=== PATIENT | female | born 1960 | race Hispanic/Latino ===

== ENCOUNTER 2018-05-04 11:45 | Day surgery (SDC) | payer BC ==
[2018-05-04] MEDS ORDERED: PHENYLEPHRINE 10% OPTH 5ML ONE (12:01)
[2018-05-04] MEDS ORDERED: LIDOCAINE 2% MPF 5 ML VIAL ONE ×2 (12:01→12:54)
[2018-05-04] MEDS ORDERED: CYCLOPENTOLATE 1% OPTH 2 ML ONE (12:01)
[2018-05-04] MEDS ORDERED: BUPIVACAINE 0.25% PF 10 ML VIAL ONE (12:01)
[2018-05-04] MEDS ORDERED: NA CHLORIDE 0.9% 500 ML ONE (12:01)
[2018-05-04] MEDS ORDERED: TETRACAINE HCL 0.5% 2ML OPTH ONE (12:01)
[2018-05-04] MEDS ORDERED: NS 0.9% VIAL 10 ML ONE (12:11)
[2018-05-04] MEDS ORDERED: DUOVISC 1 KIT OPTH ONE (12:12)
[2018-05-04] MEDS ORDERED: BALANCED SALT IRRIG PLAIN 500 ML BTL IRR ONE (12:12)
[2018-05-04] MEDS ORDERED: MOXIFLOXACIN HCL 10 DROPS/ML **OR USE OPTH ONE (12:12)
[2018-05-04] MEDS ORDERED: CYCLOPENTOLATE 1% OPTH 2 ML OPTH ONE ×2 (12:15→12:20)
[2018-05-04] MEDS ORDERED: PHENYLEPHRINE 10% OPTH 5ML OPTH ONE ×2 (12:15→12:20)
[2018-05-04] MEDS ORDERED: PROPOFOL 200 MG/20 ML VIAL IV ONE (12:54)
[2018-05-04] MEDS ORDERED: EPINEPHRINE/PF 1 MG/ML AMP ONE (13:05)
--- NOTE | 2018-05-04 14:02 | P.BOP ---
Preoperative diagnosis: Posterior polar cataract OS Postoperative diagnosis: Same Primary procedure: Phacoemulsification with IOL OS Estimated blood loss: None Anesthesia: Local (Subtenon's infusion with anesthesia for cataract surgery) Complications: None Implants: [id number] +23..5 Transferred to: Other (Day surgery) Condition: Good
--- NOTE | 2018-05-05 01:18 | OP ---
Date of Procedure: 05/04/2018 Surgeon: Zenobia Solis MD Anesthesiologist: 1. Darshan Felipe CRNA. 2. Yuri Patterson M.D. Preoperative Diagnosis: Nuclear sclerotic cataract, and/or cortical cataract and/or posterior subcap sular cataract, left eye. Operation Performed: Phacoemulsification with intraocular lens implant, left eye. Anesthesia: Per cataract surgery. Complications: None. Description Of Procedure: In day surgery, the patient was prepped with Betadine and draped. A conju nctival incision was made in the inferior nasal quadrant with Franko scissors. A sub-Tenon block c onsisting of a 1:1 mixture of 2% Xylocaine and 0.25% bupivacaine was placed through the conjunctival incision with a blunt cannula. A Honan balloon was placed over the eye and the patient was transferr ed to the operating room. In the operating room the patient was prepped and draped in the usual sterile fashion for ophthalmic surgery. A lid speculum was placed in the left eye. Two paracentesis sites were made superiorly and inferiorly in the limbal cornea. Viscoat was placed in the anterior chamber and a crescent blade wa s used to make a corneal groove and tunnel, and a keratome was used to enter the anterior chamber. P rovisc was placed in the anterior chamber and a 360 degree capsulotomy was performed with a cystitome . The lens was hydrodissected with BSS and rotated freely. The lens was removed with a stop and cho p technique. 12.35 phaco CDE was used to remove the lens. Residual cortex was removed with the irri gation and aspiration. Provisc was placed in the capsular bag. A ZCB00 +23.[address] d in the capsular bag without complications. Irrigation and aspiration were used to remove residual viscoelastic. The paracentesis sites were hydrated with BSS. The wound and paracentesis sites were inspected and found to be watertight. Vigamox 0.07 cc was placed intracamerally at the end of the pr ocedure. The eye was irrigated with balanced salt solution. The eye was patched with a soft cotton patch and Oshea metal shield. The patient was returned to day surgery in good condition. Comments: The lens was hydrodelineated rather than hydrodissected. 1:5000 epinephrine was placed in the anterior chamber prior to Viscoat. Discharge Instructions: Ms. Saucedo is discharged to home in good condition and is to follow up [facility] Dr. Solis in the morning. BHARTI/JEFF Voice ID: [id number] Report ID: [id number]
== END 2018-05-04 14:40 | disposition home or self-care (01) ==
LOC: OR 11:45
PROVIDERS: ATTEND Ophthalmology Retina Specialist
PROC: 08RK3JZ Replacement of Left Lens with Synthetic Substitute, Percutaneous Approach (ICD-10-PCS; principal; 2018-05-04 11:30)
DX: H25.12 Age-related nuclear cataract, left eye (principal); H25.042 Posterior subcapsular polar age-related cataract, left eye; H25.012 Cortical age-related cataract, left eye; I10 Essential (primary) hypertension; E66.9 Obesity, unspecified; Z68.41 Body mass index [BMI] 40.0-44.9, adult
CPT/HCPCS: J0171

== ENCOUNTER 2018-07-20 12:29 | Day surgery (SDC) | payer BC ==
[2018-07-20] MEDS ORDERED: PHENYLEPHRINE 10% OPTH 5ML ONE (12:47)
[2018-07-20] MEDS ORDERED: NA CHLORIDE 0.9% 500 ML ONE (12:47)
[2018-07-20] MEDS ORDERED: CYCLOPENTOLATE 1% OPTH 2 ML ONE (12:48)
[2018-07-20] MEDS ORDERED: CYCLOPENTOLATE 1% OPTH 2 ML OPTH ONE ×2 (13:09→13:22)
[2018-07-20] MEDS ORDERED: PHENYLEPHRINE 10% OPTH 5ML OPTH ONE ×2 (13:09→13:22)
[2018-07-20] MEDS ORDERED: EPINEPHRINE/PF 1 MG/ML AMP ONE (13:22)
[2018-07-20] MEDS ORDERED: NS 0.9% VIAL 10 ML ONE (13:22)
[2018-07-20] MEDS ORDERED: BALANCED SALT IRRIG PLAIN 500 ML BTL IRR ONE (13:22)
[2018-07-20] MEDS ORDERED: MOXIFLOXACIN HCL 10 DROPS/ML **OR USE OPTH ONE (13:23)
[2018-07-20] MEDS ORDERED: DUOVISC 1 KIT OPTH ONE (13:23)
[2018-07-20] MEDS: TETRACAINE HCL 0.5% 2ML OPTH ONE ×2 (13:54→14:34)
[2018-07-20] MEDS: BUPIVACAINE 0.25% PF 10 ML VIAL ONE ×2 (13:54→14:35)
[2018-07-20] MEDS: LIDOCAINE 2% MPF 5 ML VIAL ONE ×2 (13:55→14:35)
[2018-07-20] MEDS ORDERED: PROPOFOL 200 MG/20 ML VIAL IV ONE (14:42)
[2018-07-20] MEDS ORDERED: LIDOCAINE 1% MPF 5 ML VIAL ONE (14:43)
--- NOTE | 2018-07-20 15:34 | P.BOP ---
Preoperative diagnosis: Posterior polar cataract OD Postoperative diagnosis: Same Primary procedure: Phacoemulsification with IOL OD Estimated blood loss: None Anesthesia: Local (Subtenon's infusion with anesthesia for cataract surgery) Complications: None Implants: ZCB00 +24.5 Transferred to: Other (Day surgery) Condition: Good
--- NOTE | 2018-07-21 01:31 | OP ---
Date of Procedure: 07/20/2018 Surgeon: Zenobia Solis MD Anesthesiologist: 1. Darshan Lux CRNA. 2. Jerson Horvath M.D. Preoperative Diagnosis: Posterior polar cataract, right eye. Operation Performed: Phacoemulsification with intraocular lens implant, right eye. Anesthesia: Per cataract surgery. Complications: None. Description Of Procedure: In day surgery, the patient was prepped with Betadine and draped. A conju nctival incision was made in the inferior nasal quadrant with Franko scissors. A sub-Tenon block c onsisting of a 1:1 mixture of 2% Xylocaine and 0.25% bupivacaine was placed through the conjunctival incision with a blunt cannula. A Honan balloon was placed over the eye and the patient was transferr ed to the operating room. In the operating room the patient was prepped and draped in the usual sterile fashion for ophthalmic surgery. A lid speculum was placed in the right eye. Two paracentesis sites were made superiorly an d inferiorly in the limbal cornea. Viscoat was placed in the anterior chamber and a crescent blade w as used to make a corneal groove and tunnel, and a keratome was used to enter the anterior chamber. Provisc was placed in the anterior chamber and a 360 degree capsulotomy was performed with a cystitom e. The lens was hydrodissected with BSS and rotated freely. The lens was removed with a stop and ch op technique. 1.63 phaco CDE was used to remove the lens. Residual cortex was removed with the irri gation and aspiration. Provisc was placed in the capsular bag. A ZCB00 +24.[address] d in the capsular bag without complications. Irrigation and aspiration were used to remove residual viscoelastic. The paracentesis sites were hydrated with BSS. The wound and paracentesis sites were inspected and found to be watertight. Vigamox 0.07 cc was placed intracamerally at the end of the pr ocedure. The eye was irrigated with balanced salt solution. The eye was patched with a soft cotton patch and Oshea metal shield. The patient was returned to day surgery in good condition. Comments: The lens was hydrodelineated rather than hydrodissected. Discharge Instructions: Ms. Saucedo is discharged to home in good condition and is to follow up silvana Solis in the morning. BHARTI/JEFF Voice ID: [id number] Report ID: [id number]
== END 2018-07-20 15:55 | disposition home or self-care (01) ==
LOC: OR 12:29
PROVIDERS: ATTEND Ophthalmology Retina Specialist
PROC: 08RJ3JZ Replacement of Right Lens with Synthetic Substitute, Percutaneous Approach (ICD-10-PCS; principal; 2018-07-20 12:00)
DX: H25.041 Posterior subcapsular polar age-related cataract, right eye (principal); H25.11 Age-related nuclear cataract, right eye; I10 Essential (primary) hypertension; Z90.49 Acquired absence of other specified parts of digestive tract; Z83.518 Family history of other specified eye disorder
CPT/HCPCS: J0171

== ENCOUNTER 2018-11-24 09:47 | Emergency (ER) | payer BC ==
[2018-11-24] MEDS ORDERED: DIPHENHYDRAMINE 50 MG/ML VIAL ONE (11:36)
[2018-11-24] MEDS ORDERED: METOCLOPRAMIDE 10 MG/2mL INJ ONE (11:36)
[2018-11-24] MEDS ORDERED: KETOROLAC 30 MG/ML INJ ONE (11:36)
[2018-11-24] MEDS ORDERED: ONDANSETRON 4 MG/2 ML VIAL ONE (11:53)
[2018-11-24] MEDS ORDERED: NA CHLORIDE 0.9% 1,000 ML ONE (12:01)
[2018-11-24 12:13] LABS: Absolute Lymphocytes (CBC) 4.4 K/uL (0.7-4.9); Absolute Monocytes 0.9 K/uL (0.1-1.3); Absolute Neutrophil 10.6 K/uL (1.8-8.0); Basophils % 1.1 % (0-1.3); Eosinophils % 1.7 % (0-4.4); Hematocrit 42.5 % (36.0-45.0); Lymphocytes % 26.9 % (15.3-44.8); MPV 10.9 fL (7.6-11.3); Monocytes % 5.7 % (3.3-12.3); RBC Red Blood Cell Count 5.07 M/uL (3.86-4.86)
--- NOTE | 2018-11-24 12:24 | RAD REPORT ---
EXAM DESCRIPTION: CT - Head Brain Wo Cont - 11/24/2018 12:15 pm CLINICAL HISTORY: HEADACHE COMPARISON: No comparisons TECHNIQUE: All CT scans are performed using dose optimization technique as appropriate and may inclu de automated exposure control or mA/KV adjustment according to patient size. FINDINGS: No intracranial hemorrhage, hydrocephalus or extra-axial fluid collection.No areas of brai n edema or evidence of midline shift. Multifocal opacification of the ethmoid air cells and left aspect of the sphenoid sinus seen. The shawn varium is intact. IMPRESSION: No acute intracranial abnormality.
[2018-11-24 12:42] LABS: ALT/SGPT 21 U/L (12-78); AST/SGOT 17 U/L (15-37); Albumin 3.6 g/dL (3.4-5.0); Alkaline Phosphatase 107 U/L (45-117); BUN Blood Urea Nitrogen 8 mg/dL (7-18); Bicarbonate 27 mmol/L (21-32); Bilirubin Total 0.4 mg/dL (0.2-1.0); Glucose Level 132 mg/dL (74-106); Potassium 3.3 mmol/L (3.5-5.1); Protein, Total 8.7 g/dL (6.4-8.2); Sodium Level 139 mmol/L (136-145); Troponin (Emerg Dept Use Only) < 0.02 ng/mL (0.0-0.045)
--- NOTE | 2018-11-24 14:49 | ER ---
Nurse's Notes [facility] Name: Eleanor Saucedo Age: 58 yrs Sex: Female : 1960 Arrival Date: 11/24/2018 Time: 09:50 Bed 20 Private MD: Diagnosis: Hypertension, established;Headache Presentation: 11/24 09:55 Presenting complaint: Patient states: Reports headache to front of head for 2 days. aj Patient reports high blood pressure readings at home after skipping 2 days of HTN medications. Took Tylenol at home today at 0600 with little relief. Transition of care: patient was not received from another setting of care. Onset of symptoms was November 22, 2018. Risk Assessment: Do you want to hurt yourself or someone else? Patient reports no desire to harm self or others. Initial Sepsis Screen: Does the patient meet any 2 criteria? No. Patient's initial sepsis screen is negative. Does the patient have a suspected source of infection? No. Patient's initial sepsis screen is negative. Care prior to arrival: None. 09:55 Method Of Arrival: Ambulatory 09:55 Acuity: NANCY 3 Triage Assessment: 09:57 Headache History: The patient has had previous headaches and this one is different than previous episodes. General: Appears in no apparent distress. comfortable, Behavior is calm, cooperative, appropriate for age. Pain: Complains of pain in forehead, right eye and left eye. Neuro: Level of Consciousness is awake, alert, obeys commands, Oriented to person, place, time, situation, Appropriate for age Janitor Caretaker are equal bilaterally Moves all extremities. Full function Gait is steady, Speech is normal, Facial symmetry appears normal, Reports headache. Respiratory: Airway is patent Respiratory effort is even, unlabored, Respiratory pattern is regular, symmetrical. Derm: Skin is intact, is healthy with good turgor, Skin is pink, warm \T\ dry. normal. Historical: - Allergies: 09:57 No Known Allergies; aj - Home Meds: :57 enalapril-hydrochlorothiazide 10-25 mg oral tab 1 tab once daily [Active]; aj - PMHx: 09:57 Hypertension; aj - Immunization history:: Adult Immunizations up to date. - Social history:: Smoking status: Patient/guardian denies using tobacco. - Ebola Screening: : Patient negative for fever greater than or equal to 101.5 degrees Fahrenheit, and additional compatible Ebola Virus Disease symptoms Patient denies exposure to infectious person Patient denies travel to an Ebola-affected area in the 21 days before illness onset No symptoms or risks identified at this time. Screenin:18 Abuse screen: Denies threats or abuse. Denies injuries from another. Nutritional sv screening: No deficits noted. Tuberculosis screening: No symptoms or risk factors identified. Fall Risk None identified. Assessment: 11:19 General: Appears in no apparent distress. uncomfortable, obese, well developed, sv Behavior is calm, cooperative, appropriate for age. Pain: Complains of pain in top of head, forehead, right episcopal and left episcopal Pain currently is 8 out of 10 on a pain scale. Quality of pain is described as throbbing, Pain began 2-3 days ago. Is continuous, Also complains of photophobia. Neuro: Level of Consciousness is awake, alert, obeys commands, Oriented to person, place, time, situation, Moves all extremities. Full function Gait is steady. Respiratory: Respiratory effort is even, unlabored, Respiratory pattern is regular, symmetrical. Derm: Skin is pink, warm \T\ dry. 12:24 Reassessment: Patient appears in no apparent distress at this time. Patient and/or sv family updated on plan of care and expected duration. Pain level reassessed. Patient is alert, oriented x 3, equal unlabored respirations, skin warm/dry/pink. Patient states feeling better. Patient states symptoms have improved. Vital Signs: 09:57 BP 149 / 75; Pulse 93; Resp 18; Temp 97.2; Pulse Ox 99% on R/A; Weight 104.33 kg; aj Height 5 ft. 3 in. (160.02 cm); 11:48 Pulse 155; sv 11:57 BP 160 / 72; Pulse 115; Resp 20; Pulse Ox 99% on R/A; sv 12:00 BP 115 / 94; Pulse 104; Resp 18; Pulse Ox 97% ; sv 12:00 Pain 3/10; sv 12:00 Pain 3/10; sv 12:00 Pain 3/10; sv 13:09 BP 115 / 54; Pulse 81; Resp 16; Pulse Ox 98% ; sv 14:29 BP 113 / 48; Pulse 73; Resp 16; Pulse Ox 99% ; sv 14:59 BP 122 / 54; Pulse 77; Resp 16; Pulse Ox 99% ; sv 09:57 Body Mass Index 40.74 (104.33 kg, 160.02 cm) aj 11:[address] Messina of HR. Came to bedside. Pt placed on teletypesetter monitor. sv ED Course: 09:50 Patient arrived in ED. as 09:57 Triage completed. aj 09:57 Arm band placed on left wrist. Patient placed in waiting room, Patient notified of wait aj time. 11:12 Sulaiman Messina MD is Attending Physician. ps1 11:13 Krystyna Holt RN is Primary Nurse. sv 11:18 ED physician to see patient. sv 11:18 Patient has correct armband on for positive identification. Bed in low position. Call sv light in reach. Adult w/ patient. Pulse ox on. NIBP on. Door closed. Head of bed elevated. 11:25 Inserted saline lock: 20 gauge in left forearm, using aseptic technique. Flushed left sv forearm with 5 ml normal saline. 12:[address] vr 12:16 CT Head Brain wo Cont In Process Unspecified. EDMS 14:59 No provider procedures requiring assistance completed. IV discontinued, intact, sv bleeding controlled, No redness/swelling at site. Pressure dressing applied. Administered Medications: 11:30 Drug: TORadol 30 mg Route: IVP; Infused Over: 3 mins; Site: left forearm; sv 12:00 Follow up: Pain 3/10 Adult; Response: No adverse reaction; Marked relief of symptoms; sv Pain is decreased 11:33 Drug: Reglan 10 mg Route: IVP; Infused Over: 3 mins; Site: left forearm; sv 12:00 Follow up: Pain 3/10 Adult; Response: No adverse reaction; Marked relief of symptoms; sv Pain is decreased 11:36 Drug: Benadryl 50 mg Route: IVP; Infused Over: 3 mins; Site: left forearm; sv 12:00 Follow up: Pain 3/10 Adult; Response: No adverse reaction; Marked relief of symptoms; sv Pain is decreased 11:48 Drug: Zofran 4 mg Route: IVP; Site: left forearm; sv 12:00 Follow up: Response: No adverse reaction; Marked relief of symptoms; Nausea is decreasedsv 11:53 Drug: NS 0.9% 1000 ml Route: IV; Rate: 1000 ml; Site: left forearm; sv 13:00 Follow up: Response: No adverse reaction; IV Status: Completed infusion; IV Intake: sv 1000ml Intake: 13:00 IV: 1000ml; Total: 1000ml. sv Outcome: 14:48 Discharge ordered by . ps1 15:00 Discharged to home ambulatory, with family. sv 15:00 Condition: stable 15:00 Condition: improved 15:00 Discharge instructions given to patient, family, Instructed on discharge instructions, follow up and referral plans. Demonstrated understanding of instructions, follow-up care. 15:01 Patient left the ED. sv Signatures: Dispatcher [employer] Krystyna Bryant RN RN sv Myers, Amanda, RN RN aj Martinez, Amelia as Davis, Victoria vr Singer, Phillip, MD MD ps1 Corrections: (The following items were deleted from the chart) 10:00 09:57 Arm band placed on left wrist. Patient placed in an exam room, melanie navarro
--- NOTE | 2018-11-24 14:49 | EDPHYS ---
Physician Documentation [facility] Name: Eleanor Saucedo Age: 58 yrs Sex: Female : 1960 Arrival Date: 11/24/2018 Time: 09:50 Bed 20 Private MD: ED Physician Sulaiman Messina HPI: 11/24 11:22 This 58 yrs old Female presents to ER via Ambulatory with complaints of ps1 Headache, High Blood Pressure. 11:22 patient has a history of headaches and hypertension. She takes enalapril/hctz and ps1 stopped taking the medication two days ago because of urinary complaints at night. She is scheduled to take the medication q day. She states that she developed a headache after stopping the medication, localized frontally and then radiating towards the back. She has no FND. Pain rated as moderate to severe. No visual changes. . Historical: - Allergies: :57 No Known Allergies; aj - Home Meds: :57 enalapril-hydrochlorothiazide 10-25 mg oral tab 1 tab once daily [Active]; aj - PMHx: :57 Hypertension; aj - Immunization history:: Adult Immunizations up to date. - Social history:: Smoking status: Patient/guardian denies using tobacco. - Ebola Screening: : Patient negative for fever greater than or equal to 101.5 degrees Fahrenheit, and additional compatible Ebola Virus Disease symptoms Patient denies exposure to infectious person Patient denies travel to an Ebola-affected area in the 21 days before illness onset No symptoms or risks identified at this time. ROS: 11:22 Constitutional: Negative for fever, chills, and weight loss, Eyes: Negative for injury, ps1 pain, redness, and discharge, Cardiovascular: Negative for chest pain, palpitations, and edema, Respiratory: Negative for shortness of breath, cough, wheezing, and pleuritic chest pain, Abdomen/GI: Negative for abdominal pain, nausea, vomiting, diarrhea, and constipation, MS/Extremity: Negative for injury and deformity, Skin: Negative for injury, rash, and discoloration. 11:22 Neuro: Positive for headache. Exam: 11:22 Constitutional: This is a well developed, well nourished patient who is awake, alert, ps1 and in no acute distress. Head/Face: Normocephalic, atraumatic. Eyes: Pupils equal round and reactive to light, extra-ocular motions intact. Lids and lashes normal. Conjunctiva and sclera are non-icteric and not injected. Chest/axilla: Normal chest wall appearance and motion. Nontender with no deformity. No lesions are appreciated. Cardiovascular: Regular rate and rhythm. No gallops, murmurs, or rubs. Normal PMI, no JVD. No pulse deficits. Respiratory: Lungs have equal breath sounds bilaterally, clear to auscultation and percussion. No rales, rhonchi or wheezes noted. No increased work of breathing, no retractions or nasal flaring. Abdomen/GI: Soft, non-tender, with normal bowel sounds. No distension or tympany. No guarding or rebound. No evidence of tenderness throughout. Back: No spinal tenderness. No costovertebral tenderness. Full range of motion. Skin: Warm, dry with normal turgor. Normal color with no rashes, no lesions, and no evidence of cellulitis. MS/ Extremity: Pulses equal, no cyanosis. Neurovascular intact. Full, normal range of motion. Neuro: Awake and alert, GCS 15, oriented to person, place, time, and situation. Cranial nerves II-XII grossly intact. Sensory grossly intact. Vital Signs: 09:57 BP 149 / 75; Pulse 93; Resp 18; Temp 97.2; Pulse Ox 99% on R/A; Weight 104.33 kg; aj Height 5 ft. 3 in. (160.02 cm); 11:48 Pulse 155; sv 11:57 BP 160 / 72; Pulse 115; Resp 20; Pulse Ox 99% on R/A; sv 12:00 BP 115 / 94; Pulse 104; Resp 18; Pulse Ox 97% ; sv 12:00 Pain 3/10; sv 12:00 Pain 3/10; sv 12:00 Pain 3/10; sv 13:09 BP 115 / 54; Pulse 81; Resp 16; Pulse Ox 98% ; sv 14:29 BP 113 / 48; Pulse 73; Resp 16; Pulse Ox 99% ; sv 14:59 BP 122 / 54; Pulse 77; Resp 16; Pulse Ox 99% ; sv 09:57 Body Mass Index 40.74 (104.33 kg, 160.02 cm) aj 11:[address] Messina of HR. Came to bedside. Pt placed on gambling monitor. sv MDM: 11:27 Patient medically screened. ps1 14:46 Data reviewed: vital signs, nurses notes. ED course: patient had a paroxysmal reaction ps1 to medications given. Her HR increased for approximately 5 minutes and then improved spontaneously. She is currently asymptomatic. Stable for discharge. . 11/24 12:03 Order name: CBC with Diff; Complete Time: 12:51 ps1 11/24 12:03 Order name: CMP; Complete Time: 12:51 ps1 11/24 12:03 Order name: Troponin (emerg Dept Use Only); Complete Time: 12:51 ps1 11/24 12:03 Order name: CT Head Brain wo Cont; Complete Time: 12:51 ps1 11/24 13:41 Order name: EKG Electrocardiogram; Complete Time: 15:00 EDMS Administered Medications: 11:30 Drug: TORadol 30 mg Route: IVP; Infused Over: 3 mins; Site: left forearm; sv 12:00 Follow up: Pain 3/10 Adult; Response: No adverse reaction; Marked relief of symptoms; sv Pain is decreased 11:33 Drug: Reglan 10 mg Route: IVP; Infused Over: 3 mins; Site: left forearm; sv 12:00 Follow up: Pain 3/10 Adult; Response: No adverse reaction; Marked relief of symptoms; sv Pain is decreased 11:36 Drug: Benadryl 50 mg Route: IVP; Infused Over: 3 mins; Site: left forearm; sv 12:00 Follow up: Pain 3/10 Adult; Response: No adverse reaction; Marked relief of symptoms; sv Pain is decreased 11:48 Drug: Zofran 4 mg Route: IVP; Site: left forearm; sv 12:00 Follow up: Response: No adverse reaction; Marked relief of symptoms; Nausea is decreasedsv 11:53 Drug: NS 0.9% 1000 ml Route: IV; Rate: 1000 ml; Site: left forearm; sv 13:00 Follow up: Response: No adverse reaction; IV Status: Completed infusion; IV Intake: sv 1000ml Disposition: 11/24/18 14:48 Discharged to Home. Impression: Hypertension, established, Headache. - Condition is Stable. - Discharge Instructions: Migraine Headache, Hypertension. - Work release form, Medication Reconciliation Form, Thank You Letter, Antibiotic Education, Prescription Opioid Use form. - Follow up: Private Physician; When: As needed; Reason: Recheck today's complaints, Continuance of care, Re-evaluation by your physician. Follow up: Emergency Department; When: As needed; Reason: Worsening of condition. - Problem is an ongoing problem. - Symptoms have improved. Signatures: Dispatcher [employer] Krystyna Bryant RN RN sv Myers, Amanda, RN RN aj Singer, Phillip, MD MD ps1 Corrections: (The following items were deleted from the chart) 15:01 14:48 11/24/2018 14:48 Discharged to Home. Impression: Hypertension, established; sv Headache. Condition is Stable. Forms are Medication Reconciliation Form, Thank You Letter, Antibiotic Education, Prescription Opioid Use. Follow up: Private Physician; When: As needed; Reason: Recheck today's complaints, Continuance of care, Re-evaluation by your physician. Follow up: Emergency Department; When: As needed; Reason: Worsening of condition. Problem is an ongoing problem. Symptoms have improved. ps1
--- NOTE | 2018-11-24 16:56 | EKG ---
Test Date: 2018-10-24 Test Time: 11:54:25 Structural Iron Worker: MEASUREMENT RESULTS: Intervals: Rate: 132 VT: 148 QRSD: 74 QT: 280 QTc: 414 [place]: P: 55 VT: 148 QRS: 51 T: 42 INTERPRETIVE STATEMENTS: Sinus tachycardiawith frequent premature atrial complexes Abnormal ECG No previous ECG available for comparison Electronically Signed On 11-24-18 16:56:05 TAR LEVELER by Jayy Ojeda
== END 2018-11-24 15:01 | disposition home or self-care (01) ==
LOC: ER 09:47
DX: I10 Essential (primary) hypertension (principal); R51 Headache
CPT/HCPCS: 36415; 70450; 80053; 84484; 85025; 93005; 96361; 96374; 96375; 99284; J2405; J2765; J7030

== ENCOUNTER 2020-09-22 14:33 | Emergency (ER) | payer BC ==
--- NOTE | 2020-09-22 15:33 | RAD REPORT ---
EXAM DESCRIPTION: RAD - Chest Single View - 09/22/2020 3:28 pm CLINICAL HISTORY: CHEST PAIN Chest pain. COMPARISON: No comparisons FINDINGS: Portable technique limits examination quality. The lungs are grossly clear. The heart is normal in size. No displaced fractures. IMPRESSION: No acute intrathoracic process suspected.
[2020-09-22 15:57] LABS: Protime INR 1.15
[2020-09-22 16:04] LABS: Absolute Lymphocytes (CBC) 1.9 K/uL (0.7-4.9); Basophils % 0.7 % (0-1.3); Hematocrit 43.7 % (36.0-45.0); Lymphocytes % 15.1 % (15.3-44.8); MPV 11.6 fL (7.6-11.3); RBC Red Blood Cell Count 5.12 M/uL (3.86-4.86)
[2020-09-22 16:13] LABS: ALT/SGPT 23 U/L (12-78); AST/SGOT 15 U/L (15-37); Albumin 3.8 g/dL (3.4-5.0); Alkaline Phosphatase 90 U/L (45-117); BUN Blood Urea Nitrogen 15 mg/dL (7-18); Bicarbonate 28 mmol/L (21-32); Bilirubin Direct 0.1 mg/dL (0-0.2); Bilirubin Total 0.4 mg/dL (0.2-1.0); Glucose Level 136 mg/dL (74-106); Magnesium 2.3 mg/dL (1.8-2.4); NT PRO-BNP 21 pg/mL (<125); Potassium 3.3 mmol/L (3.5-5.1); Protein, Total 8.8 g/dL (6.4-8.2); Sodium Level 137 mmol/L (136-145); Troponin (Emerg Dept Use Only) < 0.02 ng/mL (0.0-0.045)
--- NOTE | 2020-09-22 17:06 | RAD REPORT ---
EXAM DESCRIPTION: US - Abdomen Exam Limited - 09/22/2020 5:00 pm CLINICAL HISTORY: ABD PAIN COMPARISON: Abdomen Exam Complete dated 09/13/2020 FINDINGS: The gallbladder surgically absent. The common bile duct is normal measuring 5 mm.. The liver demonstrates no findings of intrahepatic biliary dilatation. IMPRESSION: Unremarkable examination status post cholecystectomy.
--- NOTE | 2020-09-22 17:15 | EDPHYS ---
Physician Documentation [facility] Name: Eleanor Saucedo Age: 60 yrs Sex: Female : 1960 Arrival Date: 09/22/2020 Time: 14:33 Bed 14 Private MD: ED Physician Omi Hogue HPI: 09/22 17:52 This 60 yrs old Female presents to ER via Ambulatory with complaints of Chest kb Pain. 17:52 The patient presents with abdominal pain in the epigastric area. Onset: The kb symptoms/episode began/occurred 1 week(s) ago. The symptoms do not radiate. Associated signs and symptoms: none. The symptoms are described as intermittent. Modifying factors: The symptoms are alleviated by nothing, the symptoms are aggravated by nothing. Severity of pain: At its worst the pain was mild in the emergency department the pain is unchanged. The patient has not experienced similar symptoms in the past. The patient has not recently seen a physician. Pt reports epigastric pain that has been intermittent for a week.. Historical: - Allergies: 14:44 Benadryl; ss - PMHx: 14:44 Hypertension; ss - Immunization history:: Adult Immunizations up to date. - Social history:: Smoking status: Patient denies any tobacco usage or history of. ROS: 17:53 Constitutional: Negative for fever, chills, and weight loss, Cardiovascular: Negative kb for chest pain, palpitations, and edema, Respiratory: Negative for shortness of breath, cough, wheezing, and pleuritic chest pain, Back: Negative for injury and pain, MS/Extremity: Negative for injury and deformity, Skin: Negative for injury, rash, and discoloration, Neuro: Negative for headache, weakness, numbness, tingling, and seizure. 17:53 Abdomen/GI: Positive for abdominal pain, Negative for nausea, vomiting, and diarrhea. Exam: 17:53 Constitutional: This is a well developed, well nourished patient who is awake, alert, kb and in no acute distress. Head/Face: Normocephalic, atraumatic. Chest/axilla: Normal chest wall appearance and motion. Nontender with no deformity. No lesions are appreciated. Cardiovascular: Regular rate and rhythm with a normal S1 and S2. No gallops, murmurs, or rubs. Normal PMI, no JVD. No pulse deficits. Respiratory: Lungs have equal breath sounds bilaterally, clear to auscultation and percussion. No rales, rhonchi or wheezes noted. No increased work of breathing, no retractions or nasal flaring. Skin: Warm, dry with normal turgor. Normal color with no rashes, no lesions, and no evidence of cellulitis. MS/ Extremity: Pulses equal, no cyanosis. Neurovascular intact. Full, normal range of motion. Neuro: Awake and alert, GCS 15, oriented to person, place, time, and situation. Cranial nerves II-XII grossly intact. Motor strength 5/5 in all extremities. Sensory grossly intact. Cerebellar exam normal. Normal gait. 17:53 Abdomen/GI: Inspection: abdomen appears normal, Bowel sounds: normal, in all quadrants, Palpation: soft, in all quadrants, mild abdominal tenderness, in the epigastric area. Vital Signs: 14:41 BP 170 / 72; Pulse 108; Resp 16; Temp 98.4(TE); Pulse Ox 100% on R/A; Weight 98.88 kg; ss Height 5 ft. 2 in. (157.48 cm); Pain 0/10; 16:00 BP 139 / 69; Pulse 90; Resp 19; Pulse Ox 100% on R/A; ll1 17:00 BP 126 / 60; Pulse 80; ll1 17:46 BP 127 / 74; Pulse 79; Resp 18; Pulse Ox 100% ; Pain 0/10; ll1 14:41 Body Mass Index 39.87 (98.88 kg, 157.48 cm) ss MDM: 14:48 Patient medically screened. kb 17:51 Data reviewed: vital signs, nurses notes. Data interpreted: Pulse oximetry: on room air kb is 100 %. Interpretation: normal. Counseling: I had a detailed discussion with the patient and/or guardian regarding: the historical points, exam findings, and any diagnostic results supporting the discharge/admit diagnosis, lab results, radiology results, the need for outpatient follow up, a family practitioner, to return to the emergency department if symptoms worsen or persist or if there are any questions or concerns that arise at home. 09/22 14:55 Order name: Basic Metabolic Panel; Complete Time: 16:16 kb 09/22 14:55 Order name: CBC with Diff; Complete Time: 16:16 kb 09/22 14:55 Order name: LFT's; Complete Time: 16:16 kb 09/22 14:55 Order name: Magnesium; Complete Time: 16:16 kb 09/22 14:55 Order name: NT PRO-BNP; Complete Time: 16:16 kb 09/22 14:55 Order name: PT-INR; Complete Time: 16:16 kb 09/22 14:55 Order name: Troponin (emerg Dept Use Only); Complete Time: 16:16 kb 09/22 14:55 Order name: XRAY Chest (1 view); Complete Time: 15:35 kb 09/22 14:55 Order name: EKG; Complete Time: 14:56 kb 09/22 14:55 Order name: Cardiac monitoring; Complete Time: 15:31 kb 09/22 14:55 Order name: EKG - Nurse/Tech; Complete Time: 15:31 kb 09/22 14:55 Order name: IV Saline Lock; Complete Time: 15:32 kb 09/22 16:17 Order name: US Abdomen Limited; Complete Time: 17:08 kb 09/22 14:55 Order name: Labs collected and sent; Complete Time: 15:31 kb 09/22 14:55 Order name: O2 Per Protocol; Complete Time: 15:31 kb 09/22 14:55 Order name: O2 Sat Monitoring; Complete Time: 15:31 kb Administered Medications: 17:31 Drug: GI Cocktail without - (Maalox Suspension 30 ml, Lidocaine Liquid 2 % 15 ll1 ml) Route: PO; 17:46 Follow up: Response: No adverse reaction; RASS: Alert and Calm (0) ll1 Disposition: 09/23 08:25 Co-signature as Attending Physician, Omi Hogue MD I agree with the assessment and hailee plan of care. Disposition: 09/22/20 17:14 Discharged to Home. Impression: Epigastric pain. - Condition is Stable. - Discharge Instructions: Abdominal Pain, Adult, [id number], Nonspecific Chest Pain, [id number]. - Medication Reconciliation Form, Thank You Letter, Antibiotic Education, Prescription Opioid Use, Work release form form. - Follow up: Emergency Department; When: As needed; Reason: Worsening of condition. Follow up: Private Physician; When: 2 - 3 days; Reason: Recheck today's complaints, Continuance of care, Re-evaluation by your physician. Signatures: Dispatcher [employer] EDYisel Kolb, SENIOR IT ARCHITECT-C SENIOR IT ARCHITECT-Omi Munson MD MD cha Smirch, Shelby, RN RN ss Myrna Bryant RN RN ll1 Corrections: (The following items were deleted from the chart) 09/22 17:47 17:14 09/22/2020 17:14 Discharged to Home. Impression: Epigastric pain. Condition is ll1 Stable. Discharge Instructions: Abdominal Pain, Adult, [id number], Nonspecific Chest Pain, [id number]-[id number]. Forms are Medication Reconciliation Form, Thank You Letter, Antibiotic Education, Prescription Opioid Use. Follow up: Emergency Department; When: As needed; Reason: Worsening of condition. Follow up: Private Physician; When: 2 - 3 days; Reason: Recheck today's complaints, Continuance of care, Re-evaluation by your physician. kb
--- NOTE | 2020-09-22 17:15 | ER ---
Nurse's Notes [facility] Name: Eleanor Saucedo Age: 60 yrs Sex: Female : 1960 Arrival Date: 09/22/2020 Time: 14:33 Bed 14 Private MD: Diagnosis: Epigastric pain Presentation: 09/22 14:41 Chief complaint: Patient states: intermittent chest pain that began 3-4 days ago. ss Coronavirus screen: Client denies travel out of the [place] in the last 14 days. Ebola Screen: Patient denies exposure to infectious person. Patient denies travel to an Ebola-affected area in the 21 days before illness onset. Initial Sepsis Screen: Does the patient meet any 2 criteria? No. Patient's initial sepsis screen is negative. Does the patient have a suspected source of infection? No. Patient's initial sepsis screen is negative. Risk Assessment: Do you want to hurt yourself or someone else? Patient reports no desire to harm self or others. Onset of symptoms was September 2020. 14:41 Method Of Arrival: Ambulatory ss 14:41 Acuity: NANCY 3 ss Historical: - Allergies: 14:44 Benadryl; ss - PMHx: 14:44 Hypertension; ss - Immunization history:: Adult Immunizations up to date. - Social history:: Smoking status: Patient denies any tobacco usage or history of. Screenin:43 Abuse screen: Denies threats or abuse. Nutritional screening: No deficits noted. ll1 Tuberculosis screening: No symptoms or risk factors identified. Fall Risk IV access (20 points). Total Layton Fall Scale indicates No Risk (0-24 pts). Assessment: 15:42 General: Appears in no apparent distress. Behavior is calm, cooperative, appropriate ll1 for age. Pain: Complains of pain in chest Pain does not radiate. Quality of pain is described as pressure, Pain began 3 to 4 days ago Is intermittent. Neuro: No deficits noted. Cardiovascular: Reports chest pain, Heart tones S1 S2 Capillary refill < 3 seconds Clubbing of nail beds is absent JVD is absent Patient's skin is warm and dry. Chest pain is described as vague, mild, quality is pressure, is located in anterior chest wall began 3 to 4 days ago episodes are intermittent. Respiratory: No deficits noted. GI: No deficits noted. Vital Signs: 14:41 BP 170 / 72; Pulse 108; Resp 16; Temp 98.4(TE); Pulse Ox 100% on R/A; Weight 98.88 kg; ss Height 5 ft. 2 in. (157.48 cm); Pain 0/10; 16:00 BP 139 / 69; Pulse 90; Resp 19; Pulse Ox 100% on R/A; ll1 17:00 BP 126 / 60; Pulse 80; ll1 17:46 BP 127 / 74; Pulse 79; Resp 18; Pulse Ox 100% ; Pain 0/10; ll1 14:41 Body Mass Index 39.87 (98.88 kg, 157.48 cm) ss ED Course: 14:33 Patient arrived in ED. ds1 14:43 Triage completed. ss 14:44 Arm band placed on left wrist. ss 14:48 Yisel Alonso FNP-C is PHCP. kb 14:48 Omi Hogue MD is Attending Physician. kb 15:14 Myrna Bryant, DOUG is Primary Nurse. ll1 15:28 XRAY Chest (1 view) In Process Unspecified. EDMS 15:38 Inserted saline lock: 20 gauge in left antecubital area, using aseptic technique. Blood dh4 collected. Missed attempt(s): 20 gauge in left forearm. 15:43 Patient has correct armband on for positive identification. Bed in low position. Call ll1 light in reach. Side rails up X 1. panel monitor on. Pulse ox on. NIBP on. 15:43 Patient maintains SpO2 saturation greater than 95% on room air. ll1 17:00 US Abdomen Limited In Process Unspecified. EDMS 17:47 IV discontinued, intact, bleeding controlled, No redness/swelling at site. Pressure ll1 dressing applied. 17:47 No provider procedures requiring assistance completed. ll1 Administered Medications: 17:31 Drug: GI Cocktail without - (Maalox Suspension 30 ml, Lidocaine Liquid 2 % 15 ll1 ml) Route: PO; 17:46 Follow up: Response: No adverse reaction; RASS: Alert and Calm (0) ll1 Outcome: 17:14 Discharge ordered by . kb 17:47 Discharged to home ambulatory. ll1 17:47 Condition: stable 17:47 Discharge instructions given to patient, family, Instructed on discharge instructions, follow up and referral plans. Demonstrated understanding of instructions, follow-up care. 17:47 Patient left the ED. ll1 Signatures: Dispatcher [employer] EDYisel Kolb, COOPER-C GROUP DYNAMICS INSTRUCTOR-Anny Durand ds1 Kelly Rodriguez RN RN Charbel Dumont 4 Myrna Bryant RN RN ll1
[2020-09-22] MEDS ORDERED: LIDOCAINE VISCOUS 2% SOLN 15 ML UDC ONE (17:43)
[2020-09-22] MEDS ORDERED: MAGNES/ALUMIN/SIMET 30ML UCUP ONE (17:43)
[2020-09-27 19:30] VITALS: TEMP 98.4; O2SAT 100
[2020-09-27 19:34] VITALS: BP 127/74
== END 2020-09-22 17:47 | disposition home or self-care (01) ==
LOC: ER 14:33
DX: R10.13 Epigastric pain (principal); I10 Essential (primary) hypertension; Z88.8 Allergy status to other drugs, medicaments and biological substances
CPT/HCPCS: 36415; 71045; 76705; 80048; 80076; 83735; 83880; 84484; 85025; 85610; 93005; 99285

== ENCOUNTER 2021-02-13 22:24 | Observation (INO) | payer BC, OTHER ==
[2021-02-13] MEDS ORDERED: ASPIRIN 81 MG CHEWABLE TABLET ONE (23:29)
[2021-02-13 23:35] LABS: Absolute Lymphocytes (CBC) 2.2 K/uL (0.7-4.9); Basophils % 0.9 % (0-1.3); Hematocrit 42.3 % (36.0-45.0); Lymphocytes % 20.6 % (15.3-44.8); MPV 11.8 fL (7.6-11.3)
[2021-02-13 23:59] LABS: BUN Blood Urea Nitrogen 13 mg/dL (7-18); Bicarbonate 29 mmol/L (21-32); Glucose Level 143 mg/dL (74-106); NT PRO-BNP 41 pg/mL (<125); Potassium 3.1 mmol/L (3.5-5.1); Sodium Level 138 mmol/L (136-145); Troponin (Emerg Dept Use Only) < 0.02 ng/mL (0.0-0.045)
--- NOTE | 2021-02-14 00:25 | ER ---
Nurse's Notes [facility] Name: Eleanor Saucedo Age: 60 yrs Sex: Female : 1960 Arrival Date: 02/13/2021 Time: 22:29 Bed 2 Private MD: Diagnosis: Chest pain, unspecified Presentation: 02/13 22:37 Chief complaint: Patient's son or daughter states: midsternal chest pain radiating to iw left shoulder/back, stated around 830 pm, constant , had a previous episode a couple weeks ago and was supposed to have a stress test but was told if the pain got worse to come to the ER, was seen by Dr. Covington. Coronavirus screen: At this time, the client does not indicate any symptoms associated with coronavirus-19. Ebola Screen: Patient negative for fever greater than or equal to 101.5 degrees Fahrenheit, and additional compatible Ebola Virus Disease symptoms Patient denies exposure to infectious person. Patient denies travel to an Ebola-affected area in the 21 days before illness onset. No symptoms or risks identified at this time. Initial Sepsis Screen: Does the patient meet any 2 criteria? No. Patient's initial sepsis screen is negative. Does the patient have a suspected source of infection? No. Patient's initial sepsis screen is negative. Risk Assessment: Do you want to hurt yourself or someone else? Patient reports no desire to harm self or others. Onset of symptoms was February 13, 2021. 22:37 Method Of Arrival: Ambulatory iw 22:37 Acuity: NANCY 2 iw Historical: - Allergies: 22:42 Benadryl; iw - Home Meds: 22:42 amlodipine 5 mg tab 1 tab once daily [Active]; pantoprazole 40 mg oral TbEC 1 tab once iw daily [Active]; enalapril-hydrochlorothiazide 10-25 mg Oral tab 1 tab once daily [Active]; buspirone 10 mg Oral tab 1 tab 2 times per day [Active]; metoprolol tartrate 25 mg Oral tab 1 tab once daily [Active]; aspirin 81 mg Oral TbEC 1 tab once daily [Active]; - PMHx: 22:42 Hypertension; iw - PSHx: 22:42 Cholecystectomy; eye; Tubal ligation; iw - Immunization history:: Adult Immunizations Client reports receiving the 2nd dose of the Covid vaccine. - Social history:: Smoking status: Patient denies any tobacco usage or history of. - Family history:: not pertinent. - Hospitalizations: : No recent hospitalization is reported. Screenin:51 Abuse screen: Denies threats or abuse. Nutritional screening: No deficits noted. ea Tuberculosis screening: No symptoms or risk factors identified. Fall Risk None identified. Assessment: 23:15 General: Appears in no apparent distress. Behavior is calm, cooperative, appropriate ea for age. Pain: Complains of pain in chest Pain does not radiate. Neuro: Level of Consciousness is awake, alert, obeys commands, Oriented to person, place, time. Cardiovascular: Patient's skin is warm and dry. Respiratory: Airway is patent Respiratory effort is even, unlabored, Respiratory pattern is regular, symmetrical. Derm: Skin is pink, warm \T\ dry. 02/14 00:35 Reassessment: Patient and/or family updated on plan of care and expected duration. Pain ea level reassessed. Patient is alert, oriented x 3, equal unlabored respirations, skin warm/dry/pink. 02:42 Reassessment: Patient and/or family updated on plan of care and expected duration. Pain ea level reassessed. Patient is alert, oriented x 3, equal unlabored respirations, skin warm/dry/pink. Report called to receiving nurse on fourth floor. Vital Signs: 02/13 22:37 BP 137 / 79; Pulse 91; Resp 16; Pulse Ox 100% on R/A; Weight 94.8 kg; Height 5 ft. 1 iw in. (154.94 cm); 02/14 00:35 BP 136 / 62; Pulse 85; Resp 18; Pulse Ox 99% on R/A; ea 02:42 BP 111 / 60; Pulse 78; Resp 18; Temp 98; Pulse Ox 99% ; ea 02/13 22:37 Body Mass Index 39.49 (94.80 kg, 154.94 cm) iw ED Course: 02/13 22:29 Patient arrived in ED. ag3 22:40 Triage completed. iw 22:42 Arm band placed on. iw 22:44 Aamir Collins MD is Attending Physician. rn 22:47 Regulo Schmitt RN is Primary Nurse. rv 22:51 Patient has correct armband on for positive identification. Bed in low position. ea window tinter on. Pulse ox on. NIBP on. 22:51 Patient maintains SpO2 saturation greater than 95% on room air. ea 23:10 Inserted saline lock: 20 gauge in left forearm, using aseptic technique. Blood oe collected. 23:44 XRAY Chest (1 view) In Process Unspecified. EDMS 02/14 00:18 No provider procedures requiring assistance completed. Patient admitted, IV remains in ea place. 00:24 Sebastien Collins MD is Hospitalizing Provider. rn Administered Medications: 02/13 23:13 Drug: Aspirin Chewable Tablet 324 mg Route: PO; ea 02/14 01:28 Follow up: Response: No adverse reaction ea 00:29 Drug: Nitroglycerin 0.4 mg Route: Sublingual; ea : Follow up: Response: No adverse reaction ea 01:21 Drug: Potassium Effervescent Tablet 50 mEq Route: PO; ea : Follow up: Response: No adverse reaction ea Outcome: 00:24 Decision to Hospitalize by Provider. rn 01:35 Instructed on the need for admit, Demonstrated understanding of instructions. ea 02:52 Patient left the ED. rv 02:52 Admitted to Med/surg accompanied by tech, room 423, with chart, Report called to ea Receiving nurse 02:52 Condition: stable Signatures: Dispatcher [employer] EDMS Laney Leung, RN Aamir Patel MD MD rn Espinosa, Orlando oe Antunez, Elena, RN RN ea Vicente, Ronaldo, RN RN rv Gomez, Alice ag3
--- NOTE | 2021-02-14 00:25 | EDPHYS ---
Physician Documentation [facility] Name: Eleanor Saucedo Age: 60 yrs Sex: Female : 1960 Arrival Date: 02/13/2021 Time: 22:29 Bed 2 Private MD: ED Physician Aamir Collins HPI: 02/14 00:18 This 60 yrs old Female presents to ER via Ambulatory with complaints of Chest rn Pain. 00:18 The patient or guardian reports chest pain that is located primarily in the substernal rn area. Onset: 2 week(s) ago. The pain does not radiate. Associated signs and symptoms: Pertinent positives: lightheadedness, palpitations, Pertinent negatives: cough, shortness of breath, syncope, vomiting. The chest pain is described as aching, a pressure. Duration: The patient or guardian reports multiple episodes, that are intermittent. Modifying factors: The symptoms are alleviated by nothing. the symptoms are aggravated by nothing. Severity of pain: At its worst the pain was mild in the emergency department the pain is unchanged. The patient has experienced similar episodes in the past. The patient has been recently seen by a physician:. Reports 2 weeks of intermittent chest pain, palpitations, lightheaded, seen by Dr. Covington, who recommended stress test, has not had it done yet. Also takes medication for anxiety, feels like this is different. No fever/cough/trauma.. Historical: - Allergies: 02/13 22:42 Benadryl; iw - Home Meds: 22:42 amlodipine 5 mg tab 1 tab once daily [Active]; pantoprazole 40 mg oral TbEC 1 tab once iw daily [Active]; enalapril-hydrochlorothiazide 10-25 mg Oral tab 1 tab once daily [Active]; buspirone 10 mg Oral tab 1 tab 2 times per day [Active]; metoprolol tartrate 25 mg Oral tab 1 tab once daily [Active]; aspirin 81 mg Oral TbEC 1 tab once daily [Active]; - PMHx: 22:42 Hypertension; iw - PSHx: 22:42 Cholecystectomy; eye; Tubal ligation; iw - Immunization history:: Adult Immunizations Client reports receiving the 2nd dose of the Covid vaccine. - Social history:: Smoking status: Patient denies any tobacco usage or history of. - Family history:: not pertinent. - Hospitalizations: : No recent hospitalization is reported. ROS: 02/14 00:18 Constitutional: Negative for fever, chills, and weight loss, Eyes: Negative for injury, rn pain, redness, and discharge, Neck: Negative for injury, pain, and swelling, Cardiovascular: Negative for edema, + chest pain and palpitations Respiratory: Negative for shortness of breath, cough, wheezing, and pleuritic chest pain, Abdomen/GI: Negative for abdominal pain, nausea, vomiting, diarrhea, and constipation, Back: Negative for injury and pain, MS/Extremity: Negative for injury and deformity, Skin: Negative for injury, rash, and discoloration, Neuro: Negative for headache, weakness, numbness, tingling, and seizure. Exam: 00:18 Constitutional: This is a well developed, well nourished patient who is awake, alert, rn and in no acute distress. Head/Face: Normocephalic, atraumatic. ENT: MMM Cardiovascular: Regular rate and rhythm. No pulse deficits. Respiratory: No increased work of breathing, no retractions or nasal flaring. Abdomen/GI: soft, non-tender Skin: Warm, dry with normal turgor. Normal color with no rashes, no lesions, and no evidence of cellulitis. MS/ Extremity: Pulses equal, no cyanosis. Neurovascular intact. Full, normal range of motion. Equal circumference. Neuro: Awake and alert, GCS 15, oriented to person, place, time, and situation. Cranial nerves II-XII grossly intact. Motor strength 5/5 in all extremities. Sensory grossly intact 00:18 ECG was reviewed by the Attending Physician. rn Vital Signs: 02/13 22:37 BP 137 / 79; Pulse 91; Resp 16; Pulse Ox 100% on R/A; Weight 94.8 kg; Height 5 ft. 1 iw in. (154.94 cm); 02/14 00:35 BP 136 / 62; Pulse 85; Resp 18; Pulse Ox 99% on R/A; ea 02:42 BP 111 / 60; Pulse 78; Resp 18; Temp 98; Pulse Ox 99% ; ea 02/13 22:37 Body Mass Index 39.49 (94.80 kg, 154.94 cm) iw MDM: 02/13 22:44 Patient medically screened. rn 02/14 00:18 Differential diagnosis: acute myocardial infarction, acute pericarditis, anxiety, rn coronary artery disease esophagitis, gastritis. Data reviewed: vital signs, nurses notes, lab test result(s), EKG, radiologic studies, plain films, and as a result, I will admit patient. Counseling: I had a detailed discussion with the patient and/or guardian regarding: the historical points, exam findings, and any diagnostic results supporting the discharge/admit diagnosis, lab results, radiology results, the need for further work-up and treatment in the hospital. Admission orders: after a detailed discussion of the patient's condition and case, the admit orders are written by me. ED course: Pt still having pain, neg trop, no ischemia on ecg, will admit for stress that she hasn't had.. 00:53 ED course: chest pain resolved after nitro. rn 02/13 22:45 Order name: Basic Metabolic Panel; Complete Time: 00:02 rn 02/13 22:45 Order name: CBC with Diff; Complete Time: 00:02 rn 02/13 22:45 Order name: NT PRO-BNP; Complete Time: 00:02 rn 02/13 22:45 Order name: Troponin (emerg Dept Use Only); Complete Time: 00:02 rn 02/14 00:17 Order name: COVID-19 : Document "Date of Symptom Onset" if Symptomatic. ea 02/14 02:09 Order name: SARS-COV-2 RT PCR EDID 02/13 22:45 Order name: XRAY Chest (1 view) rn 02/13 22:45 Order name: EKG; Complete Time: 22:46 rn 02/13 22:45 Order name: Cardiac monitoring; Complete Time: 22:52 rn 02/13 22:45 Order name: EKG - Nurse/Tech; Complete Time: 22:52 rn 02/13 22:45 Order name: IV Saline Lock; Complete Time: 23:11 rn 02/13 22:45 Order name: Labs collected and sent; Complete Time: 23:11 rn 02/13 22:45 Order name: O2 Per Protocol; Complete Time: 22:53 rn 02/13 22:45 Order name: O2 Sat Monitoring; Complete Time: 22:53 rn EC:18 Rate is 104 beats/min. Rhythm is regular. QRS [place] is Normal. VT interval is normal. rn QRS interval is normal. QT interval is normal. No Q waves. T waves are Normal. No ST changes noted. Clinical impression: Sinus tachycardia. Interpreted by me. Reviewed by me. Administered Medications: 02/13 23:13 Drug: Aspirin Chewable Tablet 324 mg Route: PO; ea 02/14 01:28 Follow up: Response: No adverse reaction ea 00:29 Drug: Nitroglycerin 0.4 mg Route: Sublingual; ea Follow up: Response: No adverse reaction ea : Drug: Potassium Effervescent Tablet 50 mEq Route: PO; ea Follow up: Response: No adverse reaction ea Disposition: 02/14/21 00:24 Hospitalization ordered by Sebastien Collins for Observation. Preliminary diagnosis is Chest pain, unspecified. - Bed requested for Telemetry/MedSurg (observation). - Status is Observation. rv - Condition is Stable. - Problem is an ongoing problem. - Symptoms are unchanged. Signatures: Dispatcher [employer] EDIliana Collins RN RN dw Williams, Irene, RN RN iw Nieto, Roman, MD MD rn Attema, Lee, PLANE TENDER-C PLANE TENDER-Cla1 Lilibeth Goss RN RN ea Vicente, Ronaldo, RN RN rv Corrections: (The following items were deleted from the chart) 02: 00:24 Hospitalization Ordered by Sebastien Collins MD for Observation. Preliminary dw diagnosis is Chest pain, unspecified. Bed requested for Telemetry/MedSurg (observation). Status is Observation. Condition is Stable. Problem is an ongoing problem. Symptoms are unchanged. rn 02:52 02:23 02/14/2021 00:24 Hospitalization Ordered by Sebastien Collins MD for Observation. rv Preliminary diagnosis is Chest pain, unspecified. Bed requested for Telemetry/MedSurg (observation). Status is Observation. Condition is Stable. Problem is an ongoing problem. Symptoms are unchanged. dw
--- NOTE | 2021-02-14 00:42 | P.HP ---
Certification for Inpatient Patient admitted to: Observation With expected LOS: <2 Midnights Patient will require the following post-hospital care: None Practitioner: I am a practitioner with admitting privileges, knowledge of patient current condition, hospital course, and medical plan of care. Services: Services provided to patient in accordance with Admission requirements found in Title 42 Section 412.3 of the Code of Federal Regulations <David Card - Last Filed: 02/14/21 00:39> Patient History Date of Service: 02/14/21 Reason for admission: Chest pain History of Present Illness: 60-year-old female with history of hypertension, anxiety, GERD presents emergency room for chest pain, palpitations. Patient reports that she is supposed to have a stress test on outpatient basis with cardiology but has not made her appointment at, patient reports that she has been having a dull aching chest pain radiating to her left shoulder/neck tonight. Patient was evaluated in the emergency department, troponin negative, EKG without acute changes, chest x-ray unremarkable. ED provider wishes to admit patient for chest pain rule out. 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, lives with her - Family History Mother -: Heart disease - Social History Smoking Status: Never smoker Alcohol use: No CD- Drugs: No Caffeine use: Yes Place of Residence: Home <David Card - Last Filed: 02/14/21 00:39> Date of Service: 02/14/21 <Sebastien Collins - Last Filed: 02/14/21 21:35> Allergies diphenhydramine [From Benadryl] Allergy (Verified 02/14/21 03:43) Hives/Rash Home Medications: Amlodipine [Norvasc*] 5 mg PO DAILY 02/14/21 Aspirin [Aspirin EC 81 MG] 81 mg PO DAILY 02/14/21 Buspirone HCl [Buspar] 10 mg PO BID 02/14/21 Enalapril/Hydrochlorothiazide [Enalapril-Hctz 10-25 mg Tablet] 1 tab PO DAILY 02/14/21 Metoprolol Succinate 25 mg PO DAILY 02/14/21 Pantoprazole [Protonix Tab*] 40 mg PO DAILY 02/14/21 Review of Systems 10-point ROS is otherwise unremarkable Cardiovascular: Chest Pain, As per HPI <David Card - Last Filed: 02/14/21 00:39> Physical Examination - Physical Exam General: Alert, In no apparent distress, Oriented x3 HEENT: Atraumatic, PERRLA, Mucous membr. moist/pink Neck: Supple, 2+ carotid pulse no bruit Respiratory: Clear to auscultation bilaterally, Normal air movement Cardiovascular: Regular rate/rhythm, Normal S1 S2 Gastrointestinal: Normal bowel sounds, No tenderness Musculoskeletal: No tenderness Integumentary: No rashes Neurological: Normal speech, Normal strength at 5/5 x4 extr, Normal tone, Normal affect - Studies Laboratory Data (last 24 hrs) 02/13/21 23:03: WBC 10.90, Hgb 14.0, Hct 42.3, Plt Count 277 02/13/21 23:03: Sodium 138, Potassium 3.1 L, BUN 13, Creatinine 0.58, Glucose 143 H <David Card - Last Filed: 02/14/21 00:39> - Studies Laboratory Data (last 24 hrs) 02/13/21 23:03: WBC 10.90, Hgb 14.0, Hct 42.3, Plt Count 277 02/13/21 23:03: Sodium 138, Potassium 3.1 L, BUN 13, Creatinine 0.58, Glucose 143 H <Sebastien Collins - Last Filed: 02/14/21 21:35> Assessment and Plan - Plan Assessment Chest pain rule out ACS Hypertension GERD Plan Chest pain rule out ACS: Monitor on telemetry, trend troponins, continue with aspirin, statin, beta-cong therapy. Cardiology consult in place. NPO after midnight in case of stress test/intervention. DVT prophylaxis Lovenox 40 mg subcutaneous once daily. Hypertension: Continue with metoprolol, other home medications. Adjust as necessary. GERD: Continue home medications. Discharge Plan: Home Plan to discharge in: 24 Hours - Advance Directives Does patient have a Living Will: No Does patient have a Durable POA for Healthcare: No - Code Status/Comfort Care Code Status Assessed: Yes (Full code) Critical Care: No Time Spent Managing Pts Care (In Minutes): 55 <David Card - Last Filed: 02/14/21 00:39> - Plan Plan of care reviewed as noted above by David Card trend troponin. cardiology consulted possible GERD/ulcer <Sebastien Collins - Last Filed: 02/14/21 21:35>
[2021-02-14] MEDS ORDERED: NITROGLYCERIN 0.4 MG/TAB SL ONE (00:44)
[2021-02-14] MEDS ORDERED: POTASSIUM 25 MEQ EFFERV TAB ONE (01:33)
[2021-02-14 03:20] VITALS: BMI 37.4
[2021-02-14] MEDS ORDERED: ONDANSETRON 4 MG/2 ML VIAL IV PRN (03:22)
[2021-02-14 04:32] VITALS: O2SAT 97
[2021-02-14 05:00] LABS: Absolute Lymphocytes (CBC) 1.5 K/uL (0.7-4.9); Basophils % 0.6 % (0-1.3); Hematocrit 36.6 % (36.0-45.0); Lymphocytes % 17.5 % (15.3-44.8); MPV 11.2 fL (7.6-11.3); RBC Red Blood Cell Count 4.33 M/uL (3.86-4.86)
--- NOTE | 2021-02-14 05:10 | RAD REPORT ---
EXAM DESCRIPTION: Misty Single View02/13/2021 11:44 pm CLINICAL HISTORY: Chest pain COMPARISON: none FINDINGS: The lungs appear clear of acute infiltrate. The heart is normal size IMPRESSION: No acute abnormalities displayed
[2021-02-14 05:18] LABS: ALT/SGPT 23 U/L (12-78); AST/SGOT 13 U/L (15-37); Albumin 3.5 g/dL (3.4-5.0); Alkaline Phosphatase 71 U/L (45-117); BUN Blood Urea Nitrogen 9 mg/dL (7-18); Bicarbonate 29 mmol/L (21-32); Bilirubin Total 0.5 mg/dL (0.2-1.0); Glucose Level 109 mg/dL (74-106); HDL Cholesterol 58 mg/dL (40-60); LDL Cholesterol, Calculated 84 (<130); Magnesium 2.2 mg/dL (1.8-2.4); Potassium 3.6 mmol/L (3.5-5.1); Protein, Total 7.7 g/dL (6.4-8.2); Sodium Level 142 mmol/L (136-145); Thyroid Stimulating Hormone 0.977 uIU/mL (0.360-3.740); Troponin I < 0.02 ng/mL (0.0-0.045)
[2021-02-14] MEDS ORDERED: POTASSIUM CL SA 10 MEQ TAB PO ONE ×2 (05:45→06:08)
[2021-02-14 05:47] LABS: Urine Appearance CLEAR (Clear); Urine Bilirubin NEGATIVE (Negataive); Urine Blood NEGATIVE (Negative); Urine Color YELLOW (Yellow); Urine Glucose NEGATIVE (Negative); Urine Microscopic Reflex NO UMIC; Urine Protein NEGATIVE (Negative); Urine Specific Gravity <=1.005 (1.005-1.030)
[2021-02-14] MEDS ORDERED: METOPROLOL XL 25 MG TAB PO SCH (06:00)
[2021-02-14] MEDS ORDERED: PANTOPRAZOLE 40MG TABLET PO SCH (07:30)
--- NOTE | 2021-02-14 07:35 | EKG ---
Test Date: 2021-02-13 Test Time: 22:48:46 Welding Process Specialist: SHERITA MEASUREMENT RESULTS: Intervals: Rate: 104 [place]: 170 QRSD: 74 QT: 312 QTc: 410 [place]: P: 38 OK: 170 QRS: 37 T: 44 INTERPRETIVE STATEMENTS: Sinus tachycardia Nonspecific ST and T wave abnormality Abnormal ECG Compared to ECG 09/22/2020 15:52:04 Sinus rhythm no longer present ST (T wave) deviation still present Electronically Signed On 02-14-21 07:34:57 CDT by Landon Covington
[2021-02-14] MEDS: ENALAPRIL 10 MG TAB PO SCH ×2 (08:07→08:11)
[2021-02-14] MEDS ORDERED: hydroCHLOROthiazide 25 MG TAB PO SCH (09:00)
[2021-02-14] MEDS ORDERED: ASPIRIN EC 81 MG TAB PO SCH (09:00)
[2021-02-14] MEDS ORDERED: AMLODIPINE 5 MG TAB PO SCH (09:00)
[2021-02-14] MEDS ORDERED: ENOXAPARIN 40 MG/0.4 ML SQ SCH (09:00)
[2021-02-14] MEDS ORDERED: BUSPIRONE HCL 5 MG TABLET PO SCH (09:00)
[2021-02-14 12:42] VITALS: BP 115/57; TEMP 97.8
[2021-02-14] MEDS ORDERED: ATORVASTATIN 40 MG TAB PO SCH (21:00)
--- NOTE | 2021-02-14 21:39 | P.DS ---
Admission Date: 02/14/21 Discharge Date: 02/14/21 Disposition: ROUTINE DISCHARGE Discharge Condition: GOOD Reason for Admission: Chest pain Consultations: Cardiology - Dr. Covington Procedures: Problem List: Chest pain Hypertension GERD Brief History of Present Illness: 60-year-old female with history of hypertension, anxiety, GERD presents emergency room for chest pain, palpitations. Patient reports that she is supposed to have a stress test on outpatient basis with cardiology but has not made her appointment at, patient reports that she has been having a dull aching chest pain radiating to her left shoulder/neck tonight. Patient was evaluated in the emergency department, troponin negative, EKG without acute changes, chest x-ray unremarkable. ED provider wishes to admit patient for chest pain rule out. Hospital Course: Troponins trended and remained negative. Telemetry without acute events. Cardiology consulted and felt patient's symptoms were highly atypical for ACS. Recommended discharge and f/u for outpatient stress test later this week. Patient also later reported feeling some upper abdominal discomfort similar at times to prior episodes when she was diagnosed with a stomach ulcer. Recommended taking her PPI BID for the next 2 weeks. Vital Signs/Physical Exam: Physical Exam General: Alert, In no apparent distress, Oriented x3 HEENT: Atraumatic, PERRLA, Mucous membr. moist/pink Neck: Supple, 2+ carotid pulse no bruit Respiratory: Clear to auscultation bilaterally, Normal air movement Cardiovascular: Regular rate/rhythm, Normal S1 S2 Gastrointestinal: soft, mild TTP in epigastrium, non-distended Musculoskeletal: No tenderness Integumentary: No rashes Neurological: Normal speech, Normal strength at 5/5 x4 extr, Normal affect Temp Pulse Resp BP Pulse Ox 97.8 F 58 16 115/57 L 98 02/14/21 12:00 02/14/21 12:00 02/14/21 12:00 02/14/21 12:00 02/14/21 12:00 Laboratory Data at Discharge: WBC 8.50 K/uL (4.3-10.9) D 02/14/21 04:29 Hgb 12.7 g/dL (12.0-15.0) 02/14/21 04:29 Hct 36.6 % (36.0-45.0) 02/14/21 04:29 Plt Count 223 K/uL (152-406) 02/14/21 04:29 Sodium 142 mmol/L (136-145) 02/14/21 04:29 Potassium 3.6 mmol/L (3.5-5.1) 02/14/21 04:29 BUN 9 mg/dL (7-18) 02/14/21 04:29 Creatinine 0.46 mg/dL (0.55-1.3) L 02/14/21 04:29 Glucose 109 mg/dL (74-106) H 02/14/21 04:29 Magnesium 2.2 mg/dL (1.8-2.4) 02/14/21 04:29 Total Bilirubin 0.5 mg/dL (0.2-1.0) 02/14/21 04:29 AST 13 U/L (15-37) L 02/14/21 04:29 ALT 23 U/L (12-78) 02/14/21 04:29 Alkaline Phosphatase 71 U/L (45-117) 02/14/21 04:29 Troponin I < 0.02 ng/mL (0.0-0.045) 02/14/21 10:47 Triglycerides 52 mg/dL (<150) 02/14/21 04:29 Cholesterol 152 mg/dL (<200) 02/14/21 04:29 HDL Cholesterol 58 mg/dL (40-60) 02/14/21 04:29 Cholesterol/HDL Ratio 2.62 02/14/21 04:29 Home Medications: Amlodipine [Norvasc*] 5 mg PO DAILY 02/14/21 Aspirin [Aspirin EC 81 MG] 81 mg PO DAILY 02/14/21 Buspirone HCl [Buspar] 10 mg PO BID 02/14/21 Enalapril/Hydrochlorothiazide [Enalapril-Hctz 10-25 mg Tablet] 1 tab PO DAILY 02/14/21 Metoprolol Succinate 25 mg PO DAILY 02/14/21 Pantoprazole [Protonix Tab*] 40 mg PO DAILY 02/14/21 Physician Discharge Instructions: Your chest pain is unlikely to be due to heart damage. Your EKG and cardiac enzymes were normal and did not indicate heart damage / heart attack. Please continue with your home medications as prescribed. Recommend taking pantoprazole twice a day for the next 2 weeks. Your pain may be due to gastritis / gastric ulcer. You will have a cardiac stress test as already scheduled later this week. Follow up with Dr. Covington. Diet: AHA Activity: Ad jason Followup: Landon Covington MD [ACTIVE - CAN ADMIT] - (call to schedule follow up for stress test) Pollo Thompson DO, DO [Primary Care Provider] - (call to schedule appointment) Time spent managing pt's care (in minutes): 35
--- NOTE | 2021-02-15 16:24 | CON ---
Date of Consultation: 02/14/2021 Reason For Consultation: Chest pain. History Of Present Illness: Ms. Hunter is a 60-year-old woman, who has a history of hypertension, gas troesophageal reflux disease. Came in with chest pain that is substernal, does not radiate. It is n ot exertional. Has had lightheadedness, palpitation. Denied any cough, fever, or chills. Denied an y PND, orthopnea, pedal edema, palpitations, or syncope. She had been seen in our office in the past and a stress test has been recommended, but she has not done it yet. She is already ruled out for a n ME and she wants to go home. Allergies: INCLUDE BENADRYL. Review of Systems: Negative. Social History: Negative. Family History: Negative. Medications: Include Norvasc, Protonix, lisinopril with HCTZ. She is on buspirone and metoprolol. Physical Examination: Vital Signs: Stable, afebrile. HEENT: Negative. Neck: Supple without any bruit, lymphadenopathy, JVD, or thyromegaly. Chest: Clear. Cardiac: Normal. Abdomen: Benign. Extremities: Revealed no clubbing, cyanosis, or edema. Diagnostic Data: All normal. Impression And Plan: Atypical chest pain, most likely pleuritic or musculoskeletal. Nevertheless, s he has risk factors for heart disease. I still recommend she has a stress test and an echocardiogram as an outpatient. She will call us to schedule that. I am comfortable with her going home on her h ome medication. Her blood pressure is very well controlled. CECY/JEFF Voice ID: [id number] Report ID: [id number]
== END 2021-02-14 13:30 | disposition home or self-care (01) ==
LOC: ER 22:24 → ERHOLD 02-14 01:21 → 4TH 02-14 02:40
PROVIDERS: ADMIT Hospitalist; ATTEND Hospitalist
DX: R07.9 Chest pain, unspecified (principal); I10 Essential (primary) hypertension; K21.9 Gastro-esophageal reflux disease without esophagitis; F41.9 Anxiety disorder, unspecified; Z20.822 Contact with and (suspected) exposure to COVID-19; R94.31 Abnormal electrocardiogram [ECG] [EKG]
CPT/HCPCS: 93005; 85025 ×2; 80048; 36415; 83735; 80061; 84443; 81003; 84484 ×3; 84439; 80053; 83880; 71045; U0003; J1650; 99285; G0378

== ENCOUNTER 2022-04-29 19:16 | Emergency (ER) | payer OTHER ==
[2022-04-30 00:39] LABS: Absolute Lymphocytes (CBC) 2.6 K/uL (0.7-4.9); Hematocrit 44.5 % (36.0-45.0); Lymphocytes % 18.7 % (15.3-44.8); MCV 84.7 fL (80-100); MPV 10.8 fL (7.6-11.3); RBC Red Blood Cell Count 5.26 M/uL (3.86-4.86)
[2022-04-30 00:45] LABS: Magnesium 2.2 mg/dL (1.8-2.4); Potassium 3.7 mmol/L (3.5-5.1)
--- NOTE | 2022-04-30 02:00 | EDPHYS ---
Physician Documentation [facility] Name: Eleanor Saucedo Age: 61 yrs Sex: Female : 1960 Arrival Date: 04/29/2022 Time: 19:50 Bed 19 Private MD: ED Physician Omi Hogue HPI: 04/30 00:00 This 61 yrs old Female presents to ER via Ambulatory with complaints of High cp Blood Pressure. 00:00 The patient has elevated blood pressure and discovered this at home, with a home cp device. Onset: The symptoms/episode began/occurred yesterday. Associated signs and symptoms: Pertinent positives: nausea, "head feels funny", Pertinent negatives: chest pain, dizziness, headache, visual changes, vomiting. Severity of symptoms: At its worst the blood pressure was systolic blood pressure in the 200's, in the emergency department the blood pressure is improved, 153 mm Hg. Historical: - Allergies: 04/29 21:58 Benadryl; kd3 - Home Meds: 21:58 amlodipine 5 mg tab 1 tab once daily [Active]; aspirin 81 mg Oral TbEC 1 tab once daily kd3 [Active]; buspirone 10 mg Oral tab 1 tab 2 times per day [Active]; metoprolol tartrate 25 mg Oral tab 1 tab once daily [Active]; enalapril-hydrochlorothiazide 10-25 mg Oral tab 1 tab once daily [Active]; pantoprazole 40 mg Oral TbEC 1 tab once daily [Active]; - PMHx: 21:58 Hypertension; kd3 - Immunization history:: Adult Immunizations up to date. - Social history:: Smoking status: Patient denies any tobacco usage or history of. ROS: 04/30 00:05 Constitutional: Negative for body aches, chills, fever, poor PO intake. cp 00:05 Eyes: Negative for injury, pain, redness, and discharge. cp 00:05 Neck: Negative for pain with movement, pain at rest, stiffness. 00:05 Cardiovascular: Negative for chest pain, edema, palpitations. 00:05 Respiratory: Negative for cough, shortness of breath, wheezing. 00:05 Abdomen/GI: Negative for abdominal pain, vomiting, diarrhea, constipation, anorexia. 00:05 Back: Negative for pain at rest, pain with movement. 00:05 Neuro: Negative for altered mental status, dizziness, numbness, tingling, weakness. 00:05 All other systems are negative. Exam: 00:10 Constitutional: The patient appears in no acute distress, alert, awake, cp non-diaphoretic, non-toxic, well developed, well nourished, overweight 00:10 Head/Face: Normocephalic, atraumatic. cp 00:10 Eyes: Periorbital structures: appear normal, Conjunctiva: normal, no exudate, no injection, Sclera: no appreciated abnormality, Lids and lashes: appear normal, bilaterally. 00:10 ENT: External ear(s): are unremarkable, Nose: is normal, Mouth: Lips: moist, Oral mucosa: pink and intact, moist, Posterior pharynx: Airway: normal. 00:10 Neck: ROM/movement: is normal, is supple, without pain, no range of motions limitations. 00:10 Chest/axilla: Inspection: normal. 00:10 Cardiovascular: Rate: tachycardic, Rhythm: regular, Edema: is not appreciated, JVD: is not appreciated. 00:10 Respiratory: the patient does not display signs of respiratory distress, Respirations: normal, no use of accessory muscles, no retractions, labored breathing, is not present, Breath sounds: are clear throughout, no decreased breath sounds, no stridor, no wheezing. 00:10 Abdomen/GI: Exam negative for discomfort, distension, guarding, Inspection: abdomen appears normal. 00:10 Neuro: Orientation: to person, place \\T\\ time. Mentation: is normal, Motor: moves all fours, strength is normal, Sensation: is normal, Gait: is steady, at a normal pace, without difficulty. 00:37 ECG was reviewed by the Attending Physician. cp Vital Signs: 04/29 21:53 BP 153 / 96; Pulse 111; Resp 18; Temp 98.5; Pulse Ox 100% on R/A; kd3 21:53 Weight 99.79 kg; Height 5 ft. (152.40 cm); kd3 04/30 00:48 BP 129 / 71; Pulse 96; Resp 18; Pulse Ox 100% on R/A; sm5 02:29 BP 109 / 49; Pulse 80; Resp 18; Pulse Ox 99% on R/A; sm5 04/29 21:53 Body Mass Index 42.97 (99.79 kg, 152.40 cm) kd3 MDM: 04/29 23:55 Patient medically screened. [facility] 04/30 01:59 Data reviewed: vital signs, nurses notes, lab test result(s), EKG, radiologic studies, cp CT scan. 01:59 Counseling: I had a detailed discussion with the patient and/or guardian regarding: the cp historical points, exam findings, and any diagnostic results supporting the discharge/admit diagnosis, the presence of at least one elevated blood pressure reading (>120/80) during this emergency department visit, lab results, radiology results, the need for outpatient follow up, for definitive care, a family practitioner, to return to the emergency department if symptoms worsen or persist or if there are any questions or concerns that arise at home. Response to treatment: the patient's symptoms have markedly improved after treatment, and as a result, I will discharge patient. 04/30 00:11 Order name: Basic Metabolic Panel; Complete Time: 00:48 04/30 00:48 Interpretation: Normal except: NA 132; GLUC 138. 04/30 00:11 Order name: CBC with Diff; Complete Time: 00:48 04/30 00:49 Interpretation: Normal except: WBC 14.2; RBC 5.26; RIANNA% 75.6; NEUT A 10.7. 04/30 00:11 Order name: CT Head Brain wo Cont 04/30 00:11 Order name: EKG; Complete Time: 00:12 04/30 00:11 Order name: EKG - Nurse/Tech; Complete Time: 00:48 04/30 00:11 Order name: Magnesium; Complete Time: 00:48 04/30 00:11 Order name: Cardiac monitoring; Complete Time: 00:48 04/30 00:11 Order name: IV Saline Lock; Complete Time: 00:48 04/30 00:11 Order name: Labs collected and sent; Complete Time: 00:48 04/30 00:11 Order name: O2 Per Protocol; Complete Time: 00:48 04/30 00:11 Order name: O2 Sat Monitoring; Complete Time: 00:48 cp EC:37 Rate is 94 beats/min. Rhythm is regular. IA interval is normal. QRS interval is normal. cp QT interval is normal. T waves are Inverted in lead aVR. Interpreted by me. Reviewed by me. Administered Medications: No medications were administered Disposition Summary: 04/30/22 01:59 Discharge Ordered Location: Home cp Problem: chronic cp Symptoms: have improved cp Condition: Stable cp Diagnosis - Hypertensive heart disease without heart failure cp Followup: cp - With: Private Physician - When: 2 - 3 days - Reason: Recheck today's complaints Discharge Instructions: - Discharge Summary Sheet cp - Hypertension, Adult cp - Form - Blood Pressure Record Sheet cp - How to Take Your Blood Pressure cp Forms: - Medication Reconciliation Form cp - Thank You Letter cp - Antibiotic Education cp - Prescription Opioid Use cp Addendum: 05/05/2022 15:12 Co-signature as Attending Physician, Omi Hogue MD I agree with the assessment and c bañuelos plan of care. Signatures: Dispatcher [employer] EDOmi Cagle MD MD cha Page, Corey, PA PA cp Katya Olson, RN RN kd3 Corrections: (The following items were deleted from the chart) 05/01 02:15 04/30 00:00 Severity of symptoms: At its worst the blood pressure was systolic blood cp pressure in the 180's, in the emergency department the blood pressure is improved, 153 mm Hg, cp
--- NOTE | 2022-04-30 02:00 | ER ---
Nurse's Notes [facility] Name: Eleanor Saucedo Age: 61 yrs Sex: Female : 1960 Arrival Date: 04/29/2022 Time: 19:50 Bed 19 Private MD: Diagnosis: Hypertensive heart disease without heart failure Presentation: 04/29 21:53 Chief complaint: Patient states: My blood pressure has been high for a few days. it had kd3 been in the 200's before. I almost came to the ER then but it came back down so I didn't come. I Have a lot of anxiety so I am not sure if that is the cause. Coronavirus screen: Vaccine status: Patient reports receiving the 2nd dose of the covid vaccine. Ebola Screen: No symptoms or risks identified at this time. Initial Sepsis Screen: Does the patient meet any 2 criteria? No. Patient's initial sepsis screen is negative. Does the patient have a suspected source of infection? No. Patient's initial sepsis screen is negative. Risk Assessment: Do you want to hurt yourself or someone else? Patient reports no desire to harm self or others. Onset of symptoms was April 29, 2022. 21:53 Method Of Arrival: Ambulatory kd3 21:53 Acuity: NANCY 3 kd3 Triage Assessment: 21:58 General: Appears in no apparent distress. Behavior is calm, cooperative. Pain: Denies kd3 pain. Historical: - Allergies: 21:58 Benadryl; kd3 - Home Meds: 21:58 amlodipine 5 mg tab 1 tab once daily [Active]; aspirin 81 mg Oral TbEC 1 tab once daily kd3 [Active]; buspirone 10 mg Oral tab 1 tab 2 times per day [Active]; metoprolol tartrate 25 mg Oral tab 1 tab once daily [Active]; enalapril-hydrochlorothiazide 10-25 mg Oral tab 1 tab once daily [Active]; pantoprazole 40 mg Oral TbEC 1 tab once daily [Active]; - PMHx: 21:58 Hypertension; kd3 - Immunization history:: Adult Immunizations up to date. - Social history:: Smoking status: Patient denies any tobacco usage or history of. Screenin:59 Abuse screen: Denies threats or abuse. Denies injuries from another. Nutritional kd3 screening: No deficits noted. Tuberculosis screening: No symptoms or risk factors identified. Fall Risk None identified. Assessment: 04/30 01:00 General: Appears in no apparent distress. Behavior is cooperative. Pain: Denies pain. sm5 Neuro: Level of Consciousness is awake, alert, obeys commands, Oriented to person, place, time, situation. Cardiovascular: Capillary refill < 3 seconds Patient's skin is warm and dry. Rhythm is sinus rhythm. Respiratory: Airway is patent Trachea midline Respiratory effort is even, unlabored. 02:30 Reassessment: No changes from previously documented assessment. sm5 Vital Signs: 04/29 21:53 BP 153 / 96; Pulse 111; Resp 18; Temp 98.5; Pulse Ox 100% on R/A; kd3 21:53 Weight 99.79 kg; Height 5 ft. (152.40 cm); kd3 04/30 00:48 BP 129 / 71; Pulse 96; Resp 18; Pulse Ox 100% on R/A; sm5 02:29 BP 109 / 49; Pulse 80; Resp 18; Pulse Ox 99% on R/A; sm5 04/29 21:53 Body Mass Index 42.97 (99.79 kg, 152.40 cm) kd3 ED Course: 04/29 19:50 Patient arrived in ED. ja2 21:58 Triage completed. kd3 21:58 Arm band placed on right wrist. kd3 21:59 Patient has correct armband on for positive identification. kd3 23:54 Omi Sin PA is PHCP. cp 23:54 Omi Hogue MD is Attending Physician. cp 04/30 00:14 Ernestine Ray, DOUG is Primary Nurse. sm5 00:48 CT Head Brain wo Cont In Process Unspecified. EDMS 00:48 Inserted saline lock: 20 gauge in left antecubital area, using aseptic technique. Blood sm5 collected. 02:30 No provider procedures requiring assistance completed. IV discontinued, intact, sm5 bleeding controlled, No redness/swelling at site. Pressure dressing applied. Administered Medications: No medications were administered Medication: 04/29 21:59 VIS not applicable for this client. kd3 Outcome: 04/30 01:59 Discharge ordered by . cp 02:30 Discharged to home ambulatory, with significant other. sm5 02:30 Condition: stable 02:30 Discharge instructions given to patient, significant other, Instructed on discharge instructions, follow up and referral plans. Demonstrated understanding of instructions, follow-up care. 02:30 Patient left the ED. sm5 Signatures: Dispatcher [employer] EDMS Omi Sin PA PA cp Alexander, Jessica ja2 Doucette, Kyli, RN RN kd3 Ernestine Ray, RN RN sm5
[2022-04-30 02:35] VITALS: TEMP 98.5
[2022-04-30 02:44] VITALS: BP 109/49; O2SAT 99
--- NOTE | 2022-04-30 08:19 | EKG ---
Test Date: 2022-04-30 Test Time: 00:32:44 Product Marketing Consultant: FABRIZIO MEASUREMENT RESULTS: Intervals: Rate: 94 [place]: 174 QRSD: 82 QT: 328 QTc: 410 [place]: P: 56 [place]: 174 QRS: 41 T: 32 INTERPRETIVE STATEMENTS: Normal sinus rhythm Normal ECG Compared to ECG 02/13/2021 22:48:46 Sinus tachycardia no longer present ST (T wave) deviation no longer present Electronically Signed On 04-30-22 08:18:10 CDT by Landon Covington
--- NOTE | 2022-04-30 15:47 | RAD REPORT ---
EXAM DESCRIPTION: CT - Head Brain Wo Cont - 04/30/2022 6:40 am CLINICAL HISTORY: 61 years Female Hypertensive emergency COMPARISON: November 24, 2018. TECHNIQUE: Images were obtained in axial, sagittal, and coronal planes. This exam was performed according to our departmental dose-optimization program which includes use of Automated Exposure Control, adjustment of the mA and/or kV according to patient size and/or use of iterative reconstruction technique. FINDINGS: Ventricular system appears normal. No abnormal areas of increased attenuation seen. No extra-axial fluid collections noted. No evidence for skull fracture. Symmetric aeration mastoid air cells bilaterally. Mucosal thickening and fluid maxillary antra bilaterally. Additional mucosal thickening bilateral frontal and bilateral ethmoid sinuses. Hypoplasia left sphenoid sinus. IMPRESSION: No acute intracranial abnormality. No evidence for hemorrhage, mass lesion, or large acu te infarction. Marked paranasal sinus disease. Acute and chronic bilateral maxillary sinusitis. Electronically signed by: Lindsey Oliva MD 04/30/2022 1:23 AM CDT Due to temporary technical issues with the PACS/Fluency reporting system, reports are being signed by the in house radiologists without review as a courtesy to insure prompt reporting. The interpreting radiologist is fully responsible for the content of the report.
== END 2022-04-30 02:30 | disposition home or self-care (01) ==
LOC: ER 19:16
DX: I11.9 Hypertensive heart disease without heart failure (principal); I10 Essential (primary) hypertension; Z88.8 Allergy status to other drugs, medicaments and biological substances; Z79.82 Long term (current) use of aspirin
CPT/HCPCS: 36415; 70450; 80048; 83735; 85025; 93005; 99284

== ENCOUNTER 2022-10-27 08:39 | Emergency (ER) | payer OTHER ==
--- OUTSIDE RECORDS SUMMARY | 2022-10-27 08:42 | XMS REPORT | Continuity of Care Document ---
:1960 Author Organization [facility] t Address [address] [place] [address] Care Team Providers Name Role Phone Sona Blanco Attending Clinician Unavailable KNOW, DOES_NOT Admitting Clinician Unavailable Payers Payer Name Policy Type Policy Number Effective Date Expiration Date S ource Problems This patient has no known problems. Allergies, Adverse Reactions, Alerts Allergy Allergy Status Severity Reaction(s) Onset Inactive Treating Comm ents Source Name Type Date Date Clinician diphenhy DA Active SV ANAPHYLAXIS 2021-10 LAURA lugo 11-26 Carolyn 00:00: d [address] [place] [address] Medications This patient has no known medications. Procedures This patient has no known procedures. Encounters Start End Encounter Admission Attending Care Care Encounter Source Date/Time Date/Time Type Type Clinicians Facility Department ID 2022-09-26 2022-09-26 Outpatient TRENA Vargas STEPHON [id number] [facility] 08:23:00 08:23:00 Sona Downing [facility] Results Test Description Test Time Test Comments Results Result Comments Source SURGICAL 2022-09-30 16:56:00 Test Item Value Reference Range Interpretation Comme nts SURGICAL RUN DATE: (test 09/30/22 LAURA Richar Leon d - LAB PAGE 1 RUN TIME: 6 Specimen Inquiry RUN USER: INTERFACE code = PATIENT: TRAVIS VILLEGAS [id number] LOC: U #: [id number] AGE/SX: 62/F ROOM: RE09/26/22REG DR: Sona Blanco MD : 64 BED: DIS: STATUS: [facility]ON [facility] TLOC: SPEC #: [id number] RECD: 09/27/22556 STATUS: RADHA REQ #: [id number] LOLITA: 09/26/221209 [facility] DR: Sona Blanco MDE SP TYPE: SURGICAL OTHR DR: ORDERED: [id number], ANATOMIC SPEC, SPECIMEN TRACK PROCEDURES: 8 8305 (09/30/22-1530) SPECIMEN TRACK (09/27/22) TISSUES: A. POLYP - ENDOMETRIAL POLYP CURRETTING FINAL DIAGNOSIS Uterus, endometrium, curettings:- Endometrial polyp- Inactive/atrophic glandular pattern Comment: Negative for atypia/malignancy. Suggest clinical correlation. GROSS DESCRIPTI ON Endometrial polyp and curettings. Received in a suction sac are multiple fragments of pinkti ssue mixed with mucus measuring aggregate of 3 x 2.2 x 0.4 cm. Entirely submitted as A1. Technical t issue processing and slide preparation performed at [facility],[id number] , [place], [place] [address] Unless gross only, the diagnosis is based upon microscopic examination.Immunohistochemistry: This test was developed and its performance characteristicsdetermined by this laboratory. It has not been approved nor does it need approval by the USFDA. Appropriate posit mily and negative controls are reviewed and judged to be acceptable.This laboratory is certified unde r the Clinical Laboratory Improvement Amendments (CLIA-88)as qualified to perform high complexity clin ica laboratory testing. MICROSCOPIC DESCRIPTION Microscopic examination is performed on all specimen s and the findings areincorporated into the final diagnosis. Please see diagnosis for findings. Signed SIGNATURE ON FILE Ben Mccord 09/30/22 1656 END OF REPORT BASIC METABOLIC [id number] 18:09:00 Test Item Value Reference Range Interpretation Comments SODIUM (test code 141 mmol/L 134-147 N = NA) POTASSIUM (test 4.1 mmol/L 3.4-5.0 N code = K) CHLORIDE (test 107 mmol/L 100-108 N code = CL) CARBON DIOXIDE 29 mmol/L 21-32 N (test code = CO2) ANION GAP (test 5.0 GAP calc 4.0-15.0 N code = GAP) GLUCOSE (test code 84 MG/DL 70-110 N = GLU) BLOOD UREA 12 MG/DL 7-18 N NITROGEN (test code = BUN) GLOMERULAR >=60 max >60 The Glomerular FILTRATION RATE estimate estGFR Filtratio n Rate is a (test code = GFR) calculated parameterbased on serum Creatinin e, patient age and sex. GFR valuesless than 60 mL/min/1.73 square meters are darline cative ofChronic Kidne y Disease. Values less than 15 mL/min/1.73squa re meters indicate Kidney failure. The calculation for GFR is based on the CK D-EPI (2020) calculat ion. This formulais race indifferent and is the recommended formula for GFR by the National Kidney Foundation for Adults.The GFR will not calculate i f the sex is unknown or if thepatient's ag e is <18 years. CREATININE (test 0.6 MG/DL 0.6-1.0 N code = CREAT) CALCIUM (test code 9.8 MG/DL 8.5-10.1 N = CA) COVID 19 INHOUSE [id number] 18:03:00 Test Item Value Reference Range Interpretation Comments COVID 19 INHOUSE AG NEGATIVE Negative Per margaret facturer, (test code = negative result s should [id number]) be treated aspr esumptive and, if inconsi stent with clinical signs andsymptoms or necessary for patient man agement, should betested with an alternative mol ecular assay. Negative resultsdo not preclude SA RS-CoV-2 infection and s hould not be usedas the s ole basis for patient man agement decisions. Nega tive results should be considered in t he context of apatient's r ecent exposures, hist ory, presence of cli nicalsigns and symptoms co nsistent with COVID-19. CBC W/AUTO [id number] 17:59:00 Test Item Value Reference Range Interpretation Comments WHITE BLOOD CELL (test code = 7.7 K/mm3 3.5-11.0 N WBC) RED BLOOD CELL (test code = 4.97 M/mm3 4.70-6.10 N RBC) HEMOGLOBIN (test code = HGB) 14.0 G/DL 10.4-14.9 N HEMATOCRIT (test code = HCT) 42.9 % 31.5-44.1 N MEAN CELL VOLUME (test code = 86.3 Fl 84.5-98.6 N MCV) MEAN CELL HGB (test code = MCH) 28.2 pg 27.0-34.2 N MEAN CELL HGB CONCETRATION 32.6 G/DL 31.5-34.0 N (test code = MCHC) RED CELL DISTRIBUTION WIDTH 12.6 SD 11.5-14.5 N (test code = RDW) PLATELET COUNT (test code = 279 K/mm3 150-450 N PLT) MEAN PLATELET VOLUME (test code 12.20 fL 7.0-10.5 H = MPV) NEUTROPHIL % (test code = NT%) 68.2 % 40-76 N IMMATURE GRANULOCYTE % (test 0.3 % 0.0-5.0 N code = IG%) LYMPHOCYTE % (test code = LY%) 23.5 % 20.5-51.1 N MONOCYTE % (test code = MO%) 5.3 % 1.7-9.3 N EOSINOPHIL % (test code = EO%) 2.2 % 0.0-6.0 N BASOPHIL % (test code = BA%) 0.5 % 0.0-2.0 N NUCLEATED RBC % (test code = 0.0 /100WBC% 0.0-1.0 N NRBC%) NEUTROPHIL # (test code = NT#) 5.3 K/mm3 1.8-7.6 N IMMATURE GRANULOCYTE # (test 0.02 x10 3/uL 0.00-0.03 N code = IG#) LYMPHOCYTE # (test code = LY#) 1.8 K/mm3 0.6-3.2 N MONOCYTE # (test code = MO#) 0.4 K/mm3 0.3-1.1 N EOSINOPHIL # (test code = EO#) 0.2 K/mm3 0.0-0.4 N BASOPHIL # (test code = BA#) 0.0 K/mm3 0.0-0.1 N NUCLEATED RBC # (test code = 0.0 K/mm3 0.0-0.1 N NRBC#) MANUAL DIFF REQUIRED (test code NO DIFF/SCN CRITERIA = MDIFF) - XR CHEST 1 [id number] 17:18:00 [facility] 1960 Sex: F Name: TRAVIS PEREZ [facility] : 1960 Age/S: 62 / F [id number] Unit #: [id number] Loc: [place] [address] Phys: Zay Andrews MD Acct: [id number] Dis Date: Status: PRE SDC PHONE #: [phone] Exam Date: 09/25/2022 1715 FAX #: Reason: PRE OP EXAMS: CPT: [id number] XR CHEST 1 V 26806 Fluoro Time: DAP (Gy m2): Air Kerma (mGy): EXAM: Chest x-ray, 1 view Dictation location: H10 COMPARISON: None INDICATION: PRE OP DISCUSSION: No consolidation, pneumothorax, or pleural effusion is seen. The cardiomediastinal silhouette is within normal limits. No acute bony abnormalities are identified. Right upper quadrant surgical clips suggest prior cholecystectomy. IMPRESSION: No evidence of acute abnormality. at 1718 Reported and signed by: Cosmo Watts M.D. CC: Sona Blanco MD; Zay Andrews MD PAGE 1 Signed Report Name: TRAVIS SOSA [place] : 1960 Age/S: 62 / F [id number] Unit #: [id number] Loc: [place] [address] Phys: Zay Andrews MD Acct: [id number] Dis Date: Status: PRE SDC PHONE #: [phone] Exam Date: 09/25/2022 1714 FAX #: Reason: PRE OP EXAMS: CPT: [id number] XR CHEST 1 V 50950 Fluoro Time:DAP (Gy m2): Air Kerma (mGy): (Continued) Technologist: Daiana Corcoran, RT(R)(CT) Trnscb Date/Time: 09/25/2022 (4073) [id number] Orig Print D/T: S: 09/25/2022 (1336) PAGE 2 Signed Report
[2022-10-27] MEDS ORDERED: KETOROLAC 30 MG/ML INJ ONE (09:12)
[2022-10-27] MEDS ORDERED: NA CHLORIDE 0.9% 500 ML ONE (09:12)
[2022-10-27] MEDS ORDERED: METOCLOPRAMIDE 10 MG/2mL INJ ONE (09:12)
[2022-10-27] MEDS ORDERED: LORazepam 2 MG/ML VIAL ONE (09:17)
--- NOTE | 2022-10-27 09:53 | RAD REPORT ---
EXAM DESCRIPTION: CT - Head Brain Wo Cont - 10/27/2022 9:44 am CLINICAL HISTORY: left sided headache Headache, drowsiness COMPARISON: Head Brain Wo Cont dated 04/30/2022; Head Brain Wo Cont dated 11/24/2018 TECHNIQUE: All CT scans are performed using dose optimization technique as appropriate and may inclu de automated exposure control or mA/KV adjustment according to patient size. FINDINGS: No intracranial hemorrhage, hydrocephalus or extra-axial fluid collection.No areas of brai n edema or evidence of midline shift. Mild mucosal thickening of the paranasal sinuses. The calvarium is intact. IMPRESSION: No acute intracranial abnormality.
--- NOTE | 2022-10-27 11:24 | ER ---
Nurse's Notes [facility] Name: Eleanor Saucedo Age: 62 yrs Sex: Female : 1960 Arrival Date: 10/27/2022 Time: 08:41 Bed 8 Private MD: Diagnosis: Headache Presentation: 10/27 08:41 Chief complaint: Patient states: Pain to left side of head since Friday, pt states aa5 "the pain gets worse when I bend over and lift things". pt states "I also had a nose bleed on Friday and ". Denies Nausea/vomiting. 08:41 Coronavirus screen: At this time, the client does not indicate any symptoms associated aa5 with coronavirus-19. Ebola Screen: Patient denies travel to an Ebola-affected area in the 21 days before illness onset. Initial Sepsis Screen: Does the patient meet any 2 criteria? No. Patient's initial sepsis screen is negative. Does the patient have a suspected source of infection? No. Patient's initial sepsis screen is negative. Risk Assessment: Do you want to hurt yourself or someone else? Patient reports no desire to harm self or others. Onset of symptoms was October 2022. 08:41 Acuity: NANCY 3 aa5 08:41 Method Of Arrival: Ambulatory aa5 Historical: - Allergies: 08:50 Benadryl; aa5 - PMHx: 08:50 Hypertension; Fatty Liver; aa5 09:01 Migraine; aa5 - PSHx: 08:50 "they removed a little ball from my uterus"; aa5 - Immunization history:: Adult Immunizations unknown. - Social history:: Smoking status: Patient denies any tobacco usage or history of. Screenin:00 [facility] ED Fall Risk Assessment (Adult) History of falling in the last 3 months, jl7 including since admission No falls in past 3 months (0 pts) Confusion or Disorientation No (0 pts) Intoxicated or Sedated No (0 pts) Impaired Gait No (0 pts) Mobility Assist Device Used No (0 pt) Altered Elimination No (0 pt) Score/Fall Risk Level 0 - 2 = Low Risk Oriented to surroundings. Abuse screen: Denies threats or abuse. Denies injuries from another. Nutritional screening: No deficits noted. Tuberculosis screening: No symptoms or risk factors identified. Assessment: 09:05 General: Appears in no apparent distress. uncomfortable, Behavior is cooperative, jl7 appropriate for age, anxious. Pain: Complains of pain in Right posterior aspect of head Pain currently is 6 out of 10 on a pain scale. Neuro: Level of Consciousness is awake, alert, obeys commands, Oriented to person, place, time, situation. Cardiovascular: Patient's skin is warm and dry. Respiratory: Airway is patent Respiratory effort is even, unlabored, Respiratory pattern is regular, symmetrical. Derm: Skin is pink, warm \\T\\ dry. Vital Signs: 08:41 BP 167 / 77; Pulse 85; Resp 16 S; Temp 98.3(O); Pulse Ox 100% on R/A; Weight 97.52 kg aa5 (R); Height 5 ft. 2 in. (157.48 cm) (R); 09:00 BP 153 / 69; Pulse 82; Resp 15; Pulse Ox 100% ; Pain 6/10; jl7 09:45 Pain 5/10; jl7 09:58 BP 119 / 66; Pulse 73; Resp 15; Temp 98.4; Pulse Ox 98% ; Pain 5/10; jl7 11:35 BP 115 / 64; Pulse 65; Resp 14; Pulse Ox 99% on R/A; vg1 08:41 Body Mass Index 39.32 (97.52 kg, 157.48 cm) aa5 ED Course: 08:41 Patient arrived in ED. am2 08:41 Arm band placed on Patient placed in an exam room, on a stretcher. aa5 08:43 Crsitopher Lau PA is PHCP. [facility] 08:43 Aamir Collins MD is Attending Physician. [facility] 08:48 Lauren Lara, DOUG is Primary Nurse. jl7 08:50 Triage completed. aa5 09:00 Patient has correct armband on for positive identification. Bed in low position. Call jl7 light in reach. Side rails up X 1. Side rails up X2. Pulse ox on. NIBP on. Warm blanket given. 09:00 Missed attempt(s): 20 gauge in right forearm. Bleeding controlled, band aid applied, jl7 catheter tip intact. 09:05 Inserted saline lock: 22 gauge in right forearm, using aseptic technique. jl7 09:46 CT Head Brain wo Cont In Process Unspecified. EDMS 11:24 Timothy Rose MD is Referral Physician. [facility] 11:35 No provider procedures requiring assistance completed. IV discontinued, intact, vg1 bleeding controlled, No redness/swelling at site. Pressure dressing applied. Administered Medications: 09:13 Drug: Ketorolac 15 mg Route: IVP; Site: right forearm; jl7 09:45 Follow up: Pain 5/10 Adult; Response: No adverse reaction; Pain is decreased jl7 09:13 Drug: NS 0.9% 500 ml Route: IV; Rate: bolus; Site: right forearm; jl7 11:35 Follow up: IV Status: Completed infusion; IV Intake: 500ml vg1 09:15 Drug: Reglan (metoCLOPramide) 20 mg Route: IVP; Site: right forearm; jl7 09:56 Follow up: Response: No adverse reaction jl7 09:17 Drug: Ativan (LORazepam) 0.5 mg Route: IVP; Site: right forearm; aa5 11:36 Follow up: Response: No adverse reaction vg1 Medication: 09:00 VIS not applicable for this client. jl7 Intake: 11:35 IV: 500ml; Total: 500ml. vg1 Outcome: 11:23 Discharge ordered by MD. [facility] 11:35 Discharged to home ambulatory, with family. vg1 11:35 Condition: good 11:35 Discharge instructions given to patient, Instructed on discharge instructions, follow up and referral plans. Demonstrated understanding of instructions, follow-up care. 11:36 Patient left the ED. vg1 Signatures: Dispatcher [employer] EDMS Cristopher Lau PA PA Dee Qureshi, RN RN aa5 Lauren Lara RN RN jl7 Esperanza Guido Victoria, RN RN vg1 Corrections: (The following items were deleted from the chart) 09:01 08:41 97.52 kg Reported; Height 5 ft. 2 in. Reported; BMI: 39.3; aa5 aa5
--- NOTE | 2022-10-27 11:25 | EDPHYS ---
Physician Documentation [facility] Name: Eleanor Saucedo Age: 62 yrs Sex: Female : 1960 Arrival Date: 10/27/2022 Time: 08:41 Bed 8 Private MD: ED Physician Aamir Collins HPI: 10/27 08:58 This 62 yrs old Female presents to ER via Ambulatory with complaints of pain jmm to left side of head. 08:58 The patient complains of pain to the left episcopal. Onset: The symptoms/episode jmm began/occurred gradually, 1 day(s) ago. Associated signs and symptoms: Pertinent negatives: fever, malaise, neck stiffness, paresthesias, Photophobia rash, vision changes, vision loss, vomiting, weakness. Headache History: The patient has had previous headaches and this one is different than previous episodes. The patient has experienced similar episodes in the past. Patient does have a history of migraines. . Historical: - Allergies: 08:50 Benadryl; aa5 - PMHx: 08:50 Hypertension; Fatty Liver; aa5 09:01 Migraine; aa5 - PSHx: 08:50 "they removed a little ball from my uterus"; aa5 - Immunization history:: Adult Immunizations unknown. - Social history:: Smoking status: Patient denies any tobacco usage or history of. ROS: 08:58 Constitutional: Negative for fever, chills, and weight loss, Cardiovascular: Negative jmm for chest pain, palpitations, and edema, Respiratory: Negative for shortness of breath, cough, wheezing, and pleuritic chest pain. 08:58 Neuro: Positive for headache. 08:58 All other systems are negative. Exam: 08:58 Constitutional: This is a well developed, well nourished patient who is awake, alert, jmm and in no acute distress. Head/Face: atraumatic. Eyes: EOMI, no conjunctival erythema appreciated ENT: Moist Mucus Membranes Neck: Trachea midline, Supple Chest/axilla: Normal chest wall appearance and motion. Cardiovascular: Regular rate and rhythm. No edema appreciated Respiratory: Normal respirations, no respiratory distress appreciated Abdomen/GI: Non distended Back: Normal ROM Skin: General appearance color normal MS/ Extremity: Moves all extremities, no obvious deformities appreciated, no edema noted to the lower extremities Neuro: Awake and alert Psych: Behavior is normal, Mood is normal, Patient is cooperative and pleasant Vital Signs: 08:41 BP 167 / 77; Pulse 85; Resp 16 S; Temp 98.3(O); Pulse Ox 100% on R/A; Weight 97.52 kg aa5 (R); Height 5 ft. 2 in. (157.48 cm) (R); 09:00 BP 153 / 69; Pulse 82; Resp 15; Pulse Ox 100% ; Pain 6/10; jl7 09:45 Pain 5/10; jl7 09:58 BP 119 / 66; Pulse 73; Resp 15; Temp 98.4; Pulse Ox 98% ; Pain 5/10; jl7 11:35 BP 115 / 64; Pulse 65; Resp 14; Pulse Ox 99% on R/A; vg1 08:41 Body Mass Index 39.32 (97.52 kg, 157.48 cm) aa5 MDM: 08:58 Patient medically screened. ramya 11:23 Data reviewed: vital signs, nurses notes. Counseling: I had a detailed discussion with ramya the patient and/or guardian regarding: the historical points, exam findings, and any diagnostic results supporting the discharge/admit diagnosis, radiology results, the need for outpatient follow up, to return to the emergency department if symptoms worsen or persist or if there are any questions or concerns that arise at home. 10/27 08:59 Order name: CT Head Brain wo Cont; Complete Time: 09:58 [facility] 10/27 08:58 Order name: Saline Lock; Complete Time: 09:17 [facility] Administered Medications: 09:13 Drug: Ketorolac 15 mg Route: IVP; Site: right forearm; jl7 09:45 Follow up: Pain 5/10 Adult; Response: No adverse reaction; Pain is decreased 7 09:13 Drug: NS 0.9% 500 ml Route: IV; Rate: bolus; Site: right forearm; jl7 11:35 Follow up: IV Status: Completed infusion; IV Intake: 500ml vg1 09:15 Drug: Reglan (metoCLOPramide) 20 mg Route: IVP; Site: right forearm; jl7 09:56 Follow up: Response: No adverse reaction 7 09:17 Drug: Ativan (LORazepam) 0.5 mg Route: IVP; Site: right forearm; aa5 11:36 Follow up: Response: No adverse reaction vg1 Disposition: 15:10 Co-signature as Attending Physician, Aamir Collins MD. rn Disposition Summary: 10/27/22 11:23 Discharge Ordered Location: Home jm Condition: Stable jmm Diagnosis - Headache jmm Followup: jmm - With: Private Physician - When: 2 - 3 days - Reason: Recheck today's complaints, Continuance of care, Re-evaluation by your physician Followup: [facility] - With: Timothy Rose MD - When: 2 - 3 days - Reason: Recheck today's complaints, Continuance of care, Re-evaluation by your physician Discharge Instructions: - Discharge Summary Sheet jm - Migraine Headache [facility] Forms: - Medication Reconciliation Form [facility] - Thank You Letter [facility] - Antibiotic Education [facility] - Prescription Opioid Use [facility] Signatures: Dispatcher [employer] EDCristopher Blackwell PA PA jmm Nieto, Roman, MD MD rn Calderon, Audri RN RN aa5 Lauren Lara RN RN jl7 Enedelia Peterson RN vg1
[2022-10-27 12:02] VITALS: TEMP 98.4
[2022-10-27 12:03] VITALS: BP 115/64; O2SAT 99
== END 2022-10-27 11:36 | disposition home or self-care (01) ==
LOC: ER 08:39
DX: R51.9 Headache, unspecified (principal); I10 Essential (primary) hypertension; Z88.8 Allergy status to other drugs, medicaments and biological substances
CPT/HCPCS: 96361; 70450; 96375; 96374; 99284; J2765; J7040

== ENCOUNTER 2024-09-28 06:18 | Emergency (ER) | payer OTHER ==
--- OUTSIDE RECORDS SUMMARY | 2024-09-28 06:20 | XMS REPORT | Continuity of Care Document ---
Author Name Unknown Address [address] [facility] [address] [place] [address] Organization [facility] thconnect Address [address] [facility] [place] [address] Care Team Providers Care Unified Communications Architect Name Role Phone [email or web address]_S Attending Clinician Unavaila Sona Stephenson Attending Clinician Unavaila ble [email or web address]_Kadiyala_S Admitting Clinician Unavaila ble KNOW, DOES_NOT Admitting Clinician Unavailable Payers Payer Name Policy Type Policy Number Effective Date Expirati on Date Source [employer] CLAIMS OFFICE [id number] Problems Condition Name Condition Details Condition Category Status Onset Date Resolution Date Last Treatment Date Treating Clinician Comments Source Pain in pelvis Pain in Pelvis Problem Active 2023-10 00:00: 00 [facility] Diverticul itis Diverticul itis Problem Active 2022-10 0- 00:00: 00 [facility] Polyp of corpus uteri Polyp of Corpus Uteri Problem Active 2022-10 0- 00:00: 00 [facility] Increased frequency of urination Increased Frequency of Urination Problem Active 2022-10 0- 00:00: 00 [facility] Uterovagin al prolapse Uterovagin al Prolapse Problem Active 07-16 00:00: 00 [facility] Atrophic vaginitis Atrophic Vaginitis Problem Active 07-16 00:00: 00 [facility] Screening mammograph y Screening Mammograph y Problem Active 07-16 00:00: 00 [facility] Pelvic and perineal pain Pelvic and Perineal Pain Problem Active 07-16 00:00: 00 [facility] Gynecologi shawn examinatio n abnormal Gynecologi shawn Examinatio n Abnormal Problem Active 07-16 00:00: 00 [facility] Allergies, Adverse Reactions, Alerts Allergy Name Allergy Type Status Severity Reaction(s) Onset Date Inactive Date Treating Clinician Comments Source diphenhy dramine DA Active SV ANAPHYLAXIS 2021-10 00:00: 00 LAURA whitlock [facility] Benadryl Allergy to substanc e Active Tachycardia [facility] Social History Smoking Status Start Date Stop Date Source [facility] Smoker [facility] Medications Ordered Medication Name Filled Medication Name Start Date Stop Date Current Medication? Ordering Clinician Indication Dosage Frequency Signature (SIG) Comments Components Source amlodipine 5 mg tablet Take 1 tablet every day by oral route. amlodipine 5 mg tablet Take 1 tablet every day by oral route. No 1 Q1D amlodipine 5 mg tablet Take 1 tablet every day by oral route. [facility] metoprolol succinate 25 mg metoprolol succinate 25 mg No metoprolol succinate 25 mg [facility] Vital Signs Vital Name Observation Time Observation Value Comments S ource Height 2024-07-30 00:00:00 60 [in_i] [facility] BP Systolic 2024-07-30 00:00:00 136 mm[Hg] [facility] BP Diastolic 2024-07-30 00:00:00 81 mm[Hg] [facility] BMI (Body Mass Index) 2024-07-30 00:00:00 45.2 kg/m2 [facility] Body Weight 2024-07-30 00:00:00 231.2 [lb_av] [facility] Procedures Procedure Date / Time Performed Performing Clinicia n Source US TRANSVAGINAL 2024-07-30 00:00:00 [facility] Hysteroscopy 2022-09-26 00:00:00 [facility] - Lumpectomy 2005-10-20 00:00:00 [facility] Tubal Ligation 1993-10-20 00:00:00 [facility] Cholecystectomy 1985-10-20 00:00:00 [facility] Encounters Start Date/Time End Date/Time Encounter Type Admission Type Attending [facility] Care Department Encounter ID Source 2024-08-12 00:00:00 2024-08-12 00:00:00 MATTHEW Mcintyre: [address], [place] [address] , Ph. [facility] - GC_GCBZW_Christina Alonso* [id number] [facility] 2024-08-06 00:00:00 2024-08-06 00:00:00 MATTHEW Mcintyre: [address], [place] [address] , Ph. [facility] - GC_GCBZW_Christina Alonso* [id number] [facility] 2024-07-30 00:00:00 2024-07-30 00:00:00 COOPER Jordan: [address], [place] [address] , Ph. [facility] - GC_GCBZW_Christina Alonso* [id number] [facility] 2024-01-15 00:00:00 2024-01-15 00:00:00 Outpatient GC_GCBZW_Ka diyala_S [facility] PRIV [id number] [facility] 2023-12-18 00:00:00 2023-12-18 00:00:00 Outpatient GC_GCBZW_Ka diyala_S [facility] PRIV [id number] [facility] 2023-11-20 00:00:00 2023-11-20 00:00:00 Outpatient GC_GCBZW_Ka diyala_S PRIV PRIV [id number] [facility] 2023-10-31 09:36:33 2023-10-31 09:36:33 Outpatient SFA SFA [id number] Hollis Ceja 2023-10-19 00:00:00 2023-10-19 00:00:00 Outpatient GC_GCBZW_Ka diyala_S PRIV PRIV [id number] [facility] 2023-10-15 00:00:00 2023-10-15 00:00:00 Outpatient GC_GCBZW_Ka diyala_S PRIV PRIV [id number] [facility] 2023-09-21 00:00:00 2023-09-21 00:00:00 Outpatient GC_GCBZW_Ka diyala_S PRIV PRIV [id number] [facility] 2023-08-08 00:00:00 2023-08-08 00:00:00 Outpatient GC_GCBZW_Ka diyala_S PRIV PRIV [id number] [facility] 2023-08-08 00:00:00 2023-08-08 00:00:00 Outpatient GC_GCBZW_Ka diyala_S PRIV PRIV [id number] [facility] 2023-07-29 00:00:00 2023-07-29 00:00:00 Outpatient GC_GCBZW_Ka diyala_S PRIV PRIV [id number] [facility] 2023-07-28 00:00:00 2023-07-28 00:00:00 Outpatient GC_GCBZW_Ka diyala_S PRIV PRIV [id number] [facility] 2022-09-26 08:23:00 2022-09-26 08:23:00 Outpatient Sona Vargas [facility] [id number] Results Test Description Test Time Test Comments Results Result Co mments Source BASIC METABOLIC [id number] 18:09:00* Test Item Value Reference Range Interpretation Comme nts SODIUM (test code = NA) 141 mmol/L 134-147 N POTASSIUM (test code = K) 4.1 mmol/L 3.4-5.0 N CHLORIDE (test code = CL) 107 mmol/L 100-108 N CARBON DIOXIDE (test code = CO2) 29 mmol/L 21-32 N ANION GAP (test code = GAP) 5.0 GAP calc 4.0-15.0 N GLUCOSE (test code = GLU) 84 MG/DL 70-110 N BLOOD UREA NITROGEN (test code = BUN) 12 MG/DL 7-18 N GLOMERULAR FILTRATION RATE (test code = GFR) >=60 max estimate estGFR >60 The Glomerular Filtration Rate is a calculated parameterbased on serum Creatinine, patient age and sex. GFR valuesless than 60 mL/min/1.73 square meters are indicative ofChronic Kidney Disease. Values less than 15 mL/min/1.73square meters indicate Kidney failure. The calculation forGFR is based on the CKD-EPI (2020) calculation. This formulais race indifferent and is the recommended formula for GFRby the National Kidney Foundation for Adults.The GFR will not calculate if the sex is unknown or if thepatient's age is <18 years. CREATININE (test code = CREAT) 0.6 MG/DL 0.6-1.0 N CALCIUM (test code = CA) 9.8 MG/DL 8.5-10.1 N COVID 19 INHOUSE [id number] 18:03:00* Test Item Value Reference Range Interpretation Comme nts COVID 19 INHOUSE AG (test code = [id number]) NEGATIVE Negative Per steam train driver , negative results should be treated aspresumptive and, if inconsistent with clinical signs andsymptoms or necessary for patient management, should betested with an alternative molecular assay. Negative resultsdo not preclude SARS-CoV-2 infection and should not be usedas the sole basis for patient management decisions. Negative results should be considered in the context of apatient's recent exposures, history, presence of clinicalsigns and symptoms consistent with COVID-19. CBC W/AUTO [id number] 17:59:00* Test Item Value Reference Range Interpretation Comme nts WHITE BLOOD CELL (test code = WBC) 7.7 K/mm3 3.5-11.0 N RED BLOOD CELL (test code = RBC) 4.97 M/mm3 4.70-6.10 N HEMOGLOBIN (test code = HGB) 14.0 G/DL 10.4-14.9 N HEMATOCRIT (test code = HCT) 42.9 % 31.5-44.1 N MEAN CELL VOLUME (test code = MCV) 86.3 Fl 84.5-98.6 N MEAN CELL HGB (test code = MCH) 28.2 pg 27.0-34.2 N MEAN CELL HGB CONCETRATION (test code = MCHC) 32.6 G/DL 31.5-34.0 N RED CELL DISTRIBUTION WIDTH (test code = RDW) 12.6 SD 11.5-14.5 N PLATELET COUNT (test code = PLT) 279 K/mm3 150-450 N MEAN PLATELET VOLUME (test c ode = MPV) 12.20 fL 7.0-10.5 H NEUTROPHIL % (test code = NT%) 68.2 % 40-76 N IMMATURE GRANULOCYTE % (test code = IG%) 0.3 % 0.0-5.0 N LYMPHOCYTE % (test code = LY%) 23.5 % 20.5-51.1 N MONOCYTE % (test code = MO%) 5.3 % 1.7-9.3 N EOSINOPHIL % (test code = EO%) 2.2 % 0.0-6.0 N BASOPHIL % (test code = BA%) 0.5 % 0.0-2.0 N NUCLEATED RBC % (test code = NRBC%) 0.0 /100WBC% 0.0-1.0 N NEUTROPHIL # (test code = NT#) 5.3 K/mm3 1.8-7.6 N IMMATURE GRANULOCYTE # (test code = IG#) 0.02 x10 3/uL 0.00-0.03 N LYMPHOCYTE # (test code = LY#) 1.8 K/mm3 0.6-3.2 N MONOCYTE # (test code = MO#) 0.4 K/mm3 0.3-1.1 N EOSINOPHIL # (test code = EO#) 0.2 K/mm3 0.0-0.4 N BASOPHIL # (test code = BA#) 0.0 K/mm3 0.0-0.1 N NUCLEATED RBC # (test code = NRBC#) 0.0 K/mm3 0.0-0.1 N MANUAL DIFF REQUIRED (test c ode = MDIFF) NO DIFF/SCN CRITERIA - XR CHEST 1 [id number] 17:18:00 [facility] 1960 [facility]: [facility] 1960 Age/S: 62 / F [id number] Unit #: [id number] Loc: [place] [address] Phys: Zay Andrews MD Acct: [id number] Dis Date: Status: PRE [facility] PHONE #: [phone] Exam Date: 09/25/20221714 FAX #: Reason: PRE OP EXAMS: CPT: [id number] XR CHEST 1 V [id number] Fluoro Time: DAP (Gy m2): Air Kerma (mGy): EXAM: Chest x-ray, 1 view Dictation location: H10 COMPARISON: None INDICATION: PRE OP DISCUSSION: No consolidation, pneumothorax, or pleural effusion is seen.The cardiomediastinal silhouette is within normal limits. No acute bony abnormalities are identified. Right upper quadrant surgical clips suggest prior cholecystectomy. IMPRESSION: No evidence of acute abnormality. at 1718 Reported and signed by: Cosmo Watts M.D. CC: Sona Blanco MD; Zay Andrews MD PAGE 1 Signed Report Name: TRAVIS SOSA [place] : 1960 Age/S: 62 / F [address] Unit #: [id number] Loc: [place] [address] Phys: Zay Andrews MD Acct: [id number] Dis Date: Status: PRE [place] PHONE #: [phone] Exam Date: 09/25/20221714 FAX #: Reason: PRE OP EXAMS: CPT: [id number] XR CHEST 1 V 84134 Fluoro Time: DAP (Gy m2): Air Kerma (mGy): (Continued) Technologist: Daiana Corcoran, RT(R)(CT)Trnscb Date/Time: 09/25/2022 (5917) Jose D.BC0 Orig Print D/T: S: 09/25/2022 (2516) PAGE 2 Signed Report
[2024-09-28 07:15] LABS: Absolute Basophils 0.1 K/uL (0-0.5); Absolute Eosinophils 0.2 K/uL (0-0.5); Absolute Lymphocytes (CBC) 2.7 K/uL (0.7-4.9); Absolute Monocytes 0.5 K/uL (0.1-1.3); Absolute Neutrophil 8.3 K/uL (1.8-8.0); Eosinophils % 1.5 % (0-4.4); Hematocrit 44.2 % (36.0-45.0); Hemoglobin 14.6 g/dL (12.0-15.0); Lymphocytes % 22.8 % (15.3-44.8); MCH 28.6 pg (27.0-35.0); MCHC 32.9 g/dL (32.0-36.0); MCV 86.9 fL (80-100); MPV 10.5 fL (7.6-11.3); Monocytes % 4.4 % (3.3-12.3); Neutrophils % 70.3 % (41.7-73.7); Nucleated Red Blood Cells % 0.1 % (0-0); Platelets 301 thou/uL (152-406); RBC Red Blood Cell Count 5.09 M/uL (3.86-4.86); Red Cell Distribution Width 13.7 % (12.1-15.2)
[2024-09-28 07:16] LABS: PT Prothrombin Time 11.4 SECONDS (9.4-12.5); Protime INR 1.02
--- NOTE | 2024-09-28 08:14 | RAD REPORT ---
EXAMINATION: ONE VIEW CHEST XR CLINICAL INDICATION: Female, 64 years old.,CHEST PAIN TECHNIQUE: Frontal chest projection is submitted. Examination is limited by patient positioning and t echnique. COMPARISON: 09/28/2024 FINDINGS: The lungs are well inflated and clear. No pneumothorax or sizable effusion. The heart is normal in s ize. Mediastinal contours are unchanged. IMPRESSION: No acute intrathoracic abnormalities.
[2024-09-28 08:53] LABS: Albumin 3.6 g/dL (3.4-5.0); Albumin/Globulin Ratio 0.7 (1.1-1.8); Anion Gap 7.3 mEq/L (5.0-15.0); Bilirubin Direct 0.2 mg/dL (0-0.2); Bilirubin Indirect, Calculated 0.4 mg/dL (0.2-0.8); Bilirubin Total 0.6 mg/dL (0.2-1.0); D-Dimer 0.277 FEUug/mL (0-0.500); Magnesium 2.2 mg/dL (1.6-2.4); Potassium 3.3 mEq/L (3.5-5.1); Protein, Total 8.6 g/dL (6.4-8.2); Troponin High Sensitivity 4.5 pg/mL (<58.9)
[2024-09-28] MEDS ORDERED: LORazepam 2 MG/ML VIAL ONE (09:10)
--- NOTE | 2024-09-28 10:01 | EDPHYS ---
Physician Documentation [facility] Name: Eleanor Saucedo Age: 64 yrs Sex: Female : 1960 Arrival Date: 09/28/2024 Time: 06:18 Bed 2 Private MD: ED Physician Kenn Whaley HPI: 09/28 08:25 This 64 yrs old Female presents to ER via Ambulatory with complaints of Chest ms3 Pain. 08:25 Ms. Saucedo presents to the Emergency Department with a complaint of chest pain. She ms3 describes the pain as a stinging sensation on the left side of her chest, beginning around 5:30 AM today. The pain is currently not present. She reports that the pain remains in the chest and does not radiate down her arm. Ms. Saucedo has experienced episodes of elevated blood pressure for approximately two weeks. She also reports experiencing a sensation of shortness of breath for about one month, particularly when taking deep breaths, although she denies nausea and vomiting. She has a history of anxiety which she believes might be contributing to her symptoms.. Historical: - Allergies: 06:50 Benadryl; bm8 - Home Meds: 06:50 amlodipine 5 mg tab 1 tab once daily [Active]; metoprolol tartrate 25 mg Oral tab 1 tab bm8 2 times per day [Active]; - PMHx: 06:50 fatty liver; Hypertension; Migraine; bm8 - PSHx: 06:50 varicose veins repair (Migraine); bm8 - Immunization history:: Adult Immunizations up to date. - Infectious Disease History:: Denies. - Social history:: Smoking status: Patient denies any tobacco usage or history of. Patient/guardian denies using alcohol, street drugs. ROS: 08:26 Constitutional: Negative for fever, and chills. Neck: Negative for injury, pain, and ms3 swelling, 08:26 Abdomen/GI: Negative for abdominal pain, nausea, vomiting, diarrhea, and constipation, MS/Extremity: Negative for injury and deformity, Skin: Negative for injury, rash, and discoloration, 08:26 Cardiovascular: Positive for chest pain, 08:26 Respiratory: Positive for shortness of breath, Exam: 08:26 Constitutional: This is a well developed, well nourished patient who is awake, alert, ms3 and in no acute distress. Chest/axilla: Normal chest wall appearance and motion. Nontender with no deformity. Cardiovascular: Regular rate and rhythm with a normal S1 and S2. No gallops, murmurs, or rubs. Normal PMI, no JVD. No pulse deficits. Respiratory: Lungs have equal breath sounds bilaterally, clear to auscultation and percussion. No rales, rhonchi or wheezes noted. No increased work of breathing, no retractions or nasal flaring. Abdomen/GI: Soft, non-tender, with normal bowel sounds. No distension or tympany. No guarding or rebound. No evidence of tenderness throughout. Skin: Warm, dry with normal turgor. Normal color with no rashes, no lesions, and no evidence of cellulitis. 08:26 ECG was reviewed by the Attending Physician. ms3 Vital Signs: 06:49 BP 184 / 84; Pulse 98; Resp 20; Temp 97.1; Pulse Ox 100% ; Weight 102.06 kg; Height 5 bm8 ft. 0 in. ; Pain 5/10; 07:30 BP 148 / 70; Pulse 75; Resp 18; Pulse Ox 99% ; db 08:00 BP 144 / 74; Pulse 67; Resp 18; Pulse Ox 98% on R/A; db 09:00 BP 155 / 75; Pulse 75; Resp 20; Pulse Ox 97% on R/A; db 10:00 BP 127 / 67; Pulse 59; Resp 16; Pulse Ox 96% on R/A; db 10:30 BP 134 / 72; Pulse 68; Resp 16; Pulse Ox 97% on R/A; db 06:49 Body Mass Index 43.94 (102.06 kg, 152.4 cm) bm8 06:49 Pain Scale: Adult bm8 Brandon Coma Score: 06:54 Eye Response: spontaneous(4). Motor Response: obeys commands(6). Verbal Response: bm8 oriented(5). Total: 15. MDM: 07:22 Medical Screening Exam initiated ms3 08:29 Differential diagnosis: abnormal EKG, acute myocardial infarction, pulmonary embolus. ms3 11:30 HEART Score: History: Slightly Suspicious (0), ECG: Age: > 45 and < 65 years (1), Risk ms3 Factors: 1 or 2 risk factors (1), [Hypertension] Troponin: < or = 1 x Normal Limit (0), Total Score = 2. 11:30 Data reviewed: vital signs, nurses notes, lab test result(s), EKG, radiologic studies, ms3 and as a result, I will discharge patient. Consideration of Admission/Observation Escalation of care including admission/observation considered. HEART Score 2. I considered the following discharge prescriptions or medication management in the emergency department Medications were administered in the Emergency Department. See MAR. Independent interpretation of the following test(s) in the Emergency Department EKG: See my EKG interpretation above. Counseling: I had a detailed discussion with the patient and/or guardian regarding the historical points, exam findings, and any diagnostic results supporting the discharge/admit diagnosis, lab results, radiology results, the need for outpatient follow up, to return to the emergency department if symptoms worsen or persist or if there are any questions or concerns that arise at home. Special discussion: Based on the patient's history, exam, and Dx evaluation, there is no indication for emergent intervention or inpatient Tx. It is understood by the patient/guardian that if the Sx's persist or worsen they need to return immediately for re-evaluation. ED course: On reevaluation patient symptoms improved, patient is alert, no apparent distress, nontoxic-appearing, speaking full sentences, ambulatory in emergency department. Patient to follow-up Dr. Rosen in 2 to 3 days. Patient understands agrees with plan. All questions were answered. Return precautions discussed include worsening symptoms, or any other concerns. 12 06:25 Order name: Basic Metabolic Panel; Complete Time: 08:59 sp4 09/28 06:25 Order name: CBC with Diff; Complete Time: 07:59 sp4 09/28 06:25 Order name: LFT's; Complete Time: 08:59 sp4 09/28 06:25 Order name: Magnesium; Complete Time: 08:59 sp4 09/28 06:25 Order name: NT PRO-BNP; Complete Time: 08:59 sp4 09/28 06:25 Order name: PT-INR; Complete Time: 08:59 sp4 09/28 06:25 Order name: Troponin HS; Complete Time: 08:59 sp4 09/28 08:49 Order name: D-Dimer; Complete Time: 08:59 EDMS 09/28 09:00 Order name: Troponin High Sensitivity; Complete Time: 09:52 ms3 09/28 06:25 Order name: XRAY Chest (1 view); Complete Time: 08:25 sp4 09/28 06:25 Order name: Cardiac monitoring; Complete Time: 06:55 sp4 09/28 06:25 Order name: EKG - Nurse/Tech; Complete Time: 06:55 sp4 09/28 06:25 Order name: IV Saline Lock; Complete Time: 06:55 sp4 09/28 06:25 Order name: Labs collected and sent; Complete Time: 06:55 sp4 09/28 06:25 Order name: O2 Per Protocol; Complete Time: 06:55 sp4 09/28 06:25 Order name: O2 Sat Monitoring; Complete Time: 06:55 sp4 EC:26 Rate is 105 beats/min. Rhythm is regular. QRS Byers is Normal. OR interval is normal. ms3 Clinical impression: Sinus tachycardia. Interpreted by me. Reviewed by me. Administered Medications: 09:20 Drug: Ativan IVP 1 mg IVP once Route: IVP; Site: right wrist; db 10:53 Follow up: Response: No adverse reaction db Disposition Summary: 09/28/24 10:00 Discharge Ordered Notes: Location: Home ms3 Condition: Stable ms3 Diagnosis - Chest pain, unspecified ms3 - Essential (primary) hypertension ms3 Followup: ms3 - With: Juan Rosen MD - When: 1 - 2 days - Reason: Recheck today's complaints Discharge Instructions: - Discharge Summary Sheet ms3 - Nonspecific Chest Pain, Adult ms3 - Hypertension, Adult ms3 Forms: - Medication Reconciliation Form ms3 - Antibiotic Education ms3 - Prescription Opioid Use ms3 - Patient Portal Instructions ms3 - Leadership Thank You Letter ms3 - Work release form db Signatures: Dispatcher [employer] EDMS Kenn Whaley DO DO ms3 Kassie Sanchez, RN RN db Jignesh Barlow MD MD sp4 Mason Funes, DOUG RN bm8 Corrections: (The following items were deleted from the chart) 06:26 06:25 BASIC METABOLIC PANEL+C.LAB.BRZ ordered. EDMS EDMS 06:26 06:25 CBC+H.LAB.BRZ ordered. EDMS EDMS 06:26 06:25 HEPATIC FUNCTION+C.LAB.BRZ ordered. EDMS EDMS 06:26 06:25 MAGNESIUM+C.LAB.BRZ ordered. EDMS EDMS 06: 06:25 PROBNP+C.LAB.BRZ ordered. EDMS EDMS 06: 06:25 PROTIME (+INR)+COAG.LAB.BRZ ordered. EDMS EDMS 06: 06:25 Troponin High Sensitivity+C.LAB.BRZ ordered. EDMS EDMS 06:26 06:26 Chest Single View+RAD.RAD.BRZ ordered. EDMS EDMS 06:51 06:50 PSHx: "they removed a little ball from my uterus"; bm8 bm8 08:49 08:29 D-DIMER+COAG.LAB.BRZ ordered. EDMS EDMS 11:32 11:30 HEART Score: History: Slightly Suspicious (0), ECG: ms3 ms3
--- NOTE | 2024-09-28 10:01 | ER ---
Nurse's Notes [facility] Name: Eleanor Saucedo Age: 64 yrs Sex: Female : 1960 Arrival Date: 09/28/2024 Time: 06:18 Bed 2 Private MD: Diagnosis: Chest pain, unspecified;Essential (primary) hypertension Presentation: 09/28 06:49 Chief complaint: Patient states: chest pain when taking deep breaths for one month. bm8 Coronavirus screen: Vaccine status: Patient reports receiving the 2nd dose of the covid vaccine. Ebola Screen: Patient negative for fever greater than or equal to 101.5 degrees Fahrenheit, and additional compatible Ebola Virus Disease symptoms Patient denies exposure to infectious person. Patient denies travel to an Ebola-affected area in the 21 days before illness onset. No symptoms or risks identified at this time. Initial Sepsis Screen: Does the patient meet any 2 criteria? No. Patient's initial sepsis screen is negative. Does the patient have a suspected source of infection? No. Patient's initial sepsis screen is negative. Risk Assessment: Do you want to hurt yourself or someone else? Patient reports no desire to harm self or others. Onset of symptoms is unknown. 06:49 Method Of Arrival: Ambulatory bm8 06:49 Acuity: NANCY 2 bm8 Triage Assessment: 06:50 General: Appears in no apparent distress. comfortable, Behavior is calm, cooperative, bm8 appropriate for age. Pain: Complains of pain in chest Pain currently is 5 out of 10 on a pain scale. Pain began 1 month. EENT: No deficits noted. No signs and/or symptoms were reported regarding the EENT system. Neuro: No deficits noted. Level of Consciousness is awake, alert, obeys commands, Oriented to person, place, time, situation, Appropriate for age. Cardiovascular: Reports chest pain, when taking deep breaths Heart tones S1 S2 present Capillary refill < 3 seconds in bilateral fingers Patient's skin is warm and dry. Rhythm is sinus tachycardia. Respiratory: No deficits noted. Airway is patent Trachea midline Respiratory effort is even, unlabored, Respiratory pattern is regular, symmetrical, Breath sounds are clear bilaterally. GI: No signs and/or symptoms were reported involving the gastrointestinal system. : No signs and/or symptoms were reported regarding the genitourinary system. Derm: No signs and/or symptoms reported regarding the dermatologic system. Musculoskeletal: No signs and/or symptoms reported regarding the musculoskeletal system. Historical: - Allergies: 06:50 Benadryl; bm8 - Home Meds: 06:50 amlodipine 5 mg tab 1 tab once daily [Active]; metoprolol tartrate 25 mg Oral tab 1 tab bm8 2 times per day [Active]; - PMHx: 06:50 fatty liver; Hypertension; Migraine; bm8 - PSHx: 06:50 varicose veins repair (Migraine); bm8 - Immunization history:: Adult Immunizations up to date. - Infectious Disease History:: Denies. - Social history:: Smoking status: Patient denies any tobacco usage or history of. Patient/guardian denies using alcohol, street drugs. Screenin:[address] [facility] ED Fall Risk Assessment (Adult) History of falling in the last 3 months, bm8 including since admission No falls in past 3 months (0 pts) Confusion or Disorientation No (0 pts) Intoxicated or Sedated No (0 pts) Impaired Gait No (0 pts) Mobility Assist Device Used No (0 pt) Altered Elimination No (0 pt) Score/Fall Risk Level 0 - 2 = Low Risk Oriented to surroundings, Maintained a safe environment, Educated pt \\T\\ family on fall prevention, incl call for assistance when getting out of bed, Provided non-skid footwear, Hourly rounding (assess needs \\T\\ fall precautionary measures) done, Used ambulatory aids as needed (educated on \\T\\ assisted with), Used gait belt as appropriate. Abuse screen: Denies threats or abuse. Nutritional screening: No deficits noted. Tuberculosis screening: No symptoms or risk factors identified. Assessment: 06:54 Reassessment: see triage assessment. bm8 08:00 Reassessment: Patient appears in no apparent distress at this time. Patient and/or db family updated on plan of care and expected duration. Pain level reassessed. Patient is alert, oriented x 3, equal unlabored respirations, skin warm/dry/pink. Pain: Complains of pain in chest. 10:00 Reassessment: Patient appears in no apparent distress at this time. Patient and/or db family updated on plan of care and expected duration. Pain level reassessed. Patient is alert, oriented x 3, equal unlabored respirations, skin warm/dry/pink. General: Appears in no apparent distress. comfortable, Behavior is calm, cooperative. Pain: Pain does not radiate. Pain: Denies pain. Neuro: Level of Consciousness is awake, alert, obeys commands, Oriented to person, place, time, situation. Respiratory: Airway is patent Respiratory effort is even, unlabored, Respiratory pattern is regular, symmetrical. Vital Signs: 06:49 BP 184 / 84; Pulse 98; Resp 20; Temp 97.1; Pulse Ox 100% ; Weight 102.06 kg; Height 5 bm8 ft. 0 in. ; Pain 5/10; 07:30 BP 148 / 70; Pulse 75; Resp 18; Pulse Ox 99% ; db 08:00 BP 144 / 74; Pulse 67; Resp 18; Pulse Ox 98% on R/A; db 09:00 BP 155 / 75; Pulse 75; Resp 20; Pulse Ox 97% on R/A; db 10:00 BP 127 / 67; Pulse 59; Resp 16; Pulse Ox 96% on R/A; db 10:30 BP 134 / 72; Pulse 68; Resp 16; Pulse Ox 97% on R/A; db 06:49 Body Mass Index 43.94 (102.06 kg, 152.4 cm) bm8 06:49 Pain Scale: Adult bm8 Brandon Coma Score: 06:54 Eye Response: spontaneous(4). Motor Response: obeys commands(6). Verbal Response: bm8 oriented(5). Total: 15. ED Course: 06:20 Patient arrived in ED. [email or web address] 06:31 Mason Funes, RN is Primary Nurse. bm8 06:50 Triage completed. bm8 06:50 Arm band placed on right wrist. bm8 06:54 XRAY Chest (1 view) In Process Unspecified. EDMS 06:54 Patient has correct armband on for positive identification. Placed in gown. Bed in low bm8 position. Call light in reach. Side rails up X 1. Client placed on continuous cardiac and pulse oximetry monitoring. NIBP monitoring applied. surveillance system monitor on. Pulse ox on. NIBP on. Door closed. Noise minimized. Warm blanket given. Pillow given. Verbal reassurance given. Head of bed elevated. 06:54 No provider procedures requiring assistance completed. Inserted saline lock: 22 gauge bm8 in right antecubital area, using aseptic technique. Blood collected. Flushed with 10 mL NS. Patient maintains SpO2 saturation greater than 95% on room air. 07:06 Kenn Whaley DO is Attending Physician. ms3 07:07 Report given to Cammy RN. bm8 09:17 IV discontinued, intact. db 09:20 Troponin High Sensitivity Sent. db 09:20 Repeat lab(s) drawn. by ca, sent to lab. Inserted saline lock: 22 gauge in right wrist, db using aseptic technique. Blood collected. Flushed with 10 mL NS. 10:00 Juan Rosen MD is Referral Physician. ms3 10:42 Provided Education on: DISCHARGE AND FOLLOWUP. db Administered Medications: 09:20 Drug: Ativan IVP 1 mg IVP once Route: IVP; Site: right wrist; db 10:53 Follow up: Response: No adverse reaction db Medication: 06:54 VIS not applicable for this client. bm8 Outcome: 10:00 Discharge ordered by . ms3 10:42 Discharged to home ambulatory, with family, db 10:42 Condition: stable 10:42 Discharge instructions given to patient, family, Instructed on discharge instructions, follow up and referral plans. 10:53 Patient left the ED. db Signatures: Dispatcher [employer] EDMS Kenn Whaley DO DO ms3 Garcia Becka [email or web address] Kassie Sanchez, RN RN db Mason Funes, RN RN bm8 Corrections: (The following items were deleted from the chart) 06:51 06:50 PSHx: "they removed a little ball from my uterus"; bm8 bm8 09:25 09:24 Troponin High Sensitivity+C.LAB.BRZ drawn and sent. db db
[2024-09-28 11:13] VITALS: TEMP 97.1
[2024-09-28 11:18] VITALS: BP 134/72; O2SAT 97
--- NOTE | 2024-10-01 15:59 | EKG ---
Test Date: 2024-09-28 Test Time: 06:38:09 Heel Sorter: DARION MEASUREMENT RESULTS: Intervals: Rate: 105 AK: 166 QRSD: 80 QT: 290 QTc: 383 [place]: P: 25 AK: 166 QRS: 41 T: 41 INTERPRETIVE STATEMENTS: Sinus tachycardia Cannot rule out Anterior infarct, age undetermined Abnormal ECG Compared to ECG 04/30/2022 00:32:44 Myocardial infarct finding now present Sinus rhythm no longer present Electronically Signed On 10-01-24 15:52:38 [employer]PERATOR by J Carlos Smiley
== END 2024-09-28 10:53 | disposition home or self-care (01) ==
LOC: ER 06:18
DX: R07.9 Chest pain, unspecified (principal); I10 Essential (primary) hypertension
CPT/HCPCS: 36415; 71045; 80048; 80076; 83735; 83880; 84484; 85025; 85379; 85610; 93005; 96374; 99285